=== PATIENT | female | born 1970 | race Caucasian/White ===

== ENCOUNTER → 2016-11-20 | Day surgery (SDC) | payer BC ==
[2016-11-12 14:56] VITALS: Ht 157.5 cm; Wt 63.6 kg
[~2016-11-20] VITALS: Ht 157.5 cm; Wt 63.6 kg
[~2016-11-20] MED LIST: BUSP-8 PO; CHOL20009 PO; DICY20TA35 PO; DULO60CA44 PO; ESCI10TA17 PO; FAMO1TAB48 PO; FRN PO; LIDOCAINE HCL 2% 2 ML VIAL (20MG/ML) ONE; LINA1CAP PO; LVS125 SL; MIDAZOLAM HCL 1 MG/ML 2ML VIAL ONE; PANT40TA PO; POLY335019 PO; POTA99TA PO; POTASSIUM PO; PROPOFOL IV EMULSION 10 MG/ML 20 ML VIAL IV ONE; SENN-91 PO; SUMA0.05 IM; TOLT2TAB9 PO; TOPI100T20 PO; TRAM-10 PO
--- NOTE | 2016-11-20 08:47 | Endo History and Physical ---
History & Physical Date of Service: November 20, 2016. Chief Complaint: CHRONIC DIARRHEA, FECAL URGENCY Referring Physician: DIOGO GARCIA PA-C History of Present Illness 46 yo CF who presents for colonoscopy secondary to chronic diarrhea and fecal urgency. Past Medical History Anxiety, Reflux, Seizure Disorder, Depression Past Surgical History Hx Cardiac Surgery: No Hx Internal Defibrillator: No Hx Pacemaker: No Hx Abdominal Surgery: Yes (HENOK, LAP MOHSEN, D&C) Hx of Implantable Prosthesis: No Hx Post-Op Nausea and Vomiting: Yes (POST-OP NAUSEA) Hx Cancer Surgery: No Hx Thoracic Surgery: No Hx Orthopedic: No Hx Urinary Tract Surgery: No Family History Polyp, IBD Social History Smoking Status: Current Every Day Smoker Hx Substance Use: No Hx Alcohol Use: No Allergies Coded Allergies: Gabapentin (Verified Adverse Reaction, Intermediate, DIZZY HOT FLUSHES "ZOMBIE" LIKE BEHAVIOR, 11/20/16) Current Medications Reported Home Medications Medications Dose Route/Sig Max Daily Dose Days Date Category Zembrace Symtouch (Sumatriptan Succinate) 3 Mg/0.5 Ml Inj 1 Dose IM DIRECTED PRN 11/12/16 Reported Vitamin D (Cholecalciferol) 2,000 Unit Tab 1 Tab PO QPM 11/12/16 Reported Topamax (Topiramate) 100 Mg Tab 100 Mg PO BID 11/12/16 Reported [Potassium] 99 Mg PO HS 11/12/16 Reported Lexapro (Escitalopram Oxalate) 10 Mg Tab 10 Mg PO QPM 11/12/16 Reported Cymbalta (Duloxetine Hcl) 60 Mg Cap 60 Mg PO QPM 11/12/16 Reported Butalbital/Aspirin/Caffei 50-325-40 mg (Ergrndkfna-Totpths-Krbpbytv) 1 Cap Cap 1 Cap PO DIRECTED PRN 11/12/16 Reported Protonix (Pantoprazole Sodium) 40 Mg Tab 40 Mg PO BID 05/28/15 Reported Ultram (Tramadol HCl) 50 Mg Tab 50 Mg PO BID PRN 05/15/14 Reported Pepcid (Famotidine) 40 Mg Tab 2 Tab PO HS 10/27/11 Reported Buspirone Hcl 10 Mg Tab 10 Mg PO BID 10/27/11 Reported Vital Signs Weight (Kilograms): 63.64 Height (Feet): 5 Height (Inches): 2 Date Time Temp Pulse Resp B/P Pulse Ox O2 Delivery O2 Flow Rate FiO2 11/20/16 08:36 36.7 58 20 97/66 100 Room Air Physical Exam General Appearance: WD/WN, no apparent distress Respiratory/Chest: Auscultation: breath sounds normal Cardiovascular: Heart Auscultation: RRR Abdomen: Bowel Sounds: normal Inspection & Palpation: soft, non-distended, no tenderness, guarding & rebound Assessment and Plan Assessment: 46 yo CF who presents for colonoscopy secondary to chronic diarrhea and fecal urgency. Plan: Proceed with colonoscopy.
--- NOTE | 2016-11-20 09:57 | GI REPORT ---
Procedure Date: 11/20/2016 9:17 AM Procedure: Colonoscopy Indications: Chronic diarrhea Medicines: Monitored Anesthesia Care Complications: No immediate complications. Estimated Blood Loss: Estimated blood loss: none. Procedure: Pre-Anesthesia Assessment: - Prior to the procedure, a History and Physical was performed, and patient medications and allergies were reviewed. The patient's tolerance of previous anesthesia was also reviewed. The risks and benefits of the procedure and the sedation options and risks were discussed with the patient. All questions were answered, and informed consent was obtained. Prior Anticoagulants: The patient has taken no previous anticoagulant or antiplatelet agents. ASA Grade Assessment: II - A patient with mild systemic disease. After reviewing the risks and benefits, the patient was deemed in satisfactory condition to undergo the procedure. After I obtained informed consent, the scope was passed under direct vision. Throughout the procedure, the patient's blood pressure, pulse, and oxygen saturations were monitored continuously. The scope was introduced through the anus and advanced to the terminal ileum. The colonoscopy was performed without difficulty. The patient tolerated the procedure well. The quality of the bowel preparation was good. The terminal ileum, ileocecal valve, appendiceal orifice, and rectum were photographed. Findings: Non-bleeding internal hemorrhoids were found during retroflexion. The hemorrhoids were small. Several random biopsies were obtained with cold forceps for histology in the entire colon. Fluid aspiration for cytology was performed. Impression: - Non-bleeding internal hemorrhoids. - Several random biopsies were obtained in the entire colon. - Fluid aspiration was performed. Recommendation: - Resume previous diet. - Continue present medications. - Repeat colonoscopy for surveillance based on pathology results. - Return to primary care physician as previously scheduled. Timoteo Grissom DO 11/20/2016 9:57:18 AM This report has been signed electronically. Note Initiated On: 11/20/2016 9:17 AM I attest to the content of the Intraoperative Record and orders documented therein, exceptions below
--- NOTE | 2016-11-20 10:17 | Anesthesiology Progress Note ---
Anesthesia Post Op Note Date & Time November 20, 2016 at 10:17 Vital Signs Pain Intensity: 0 Vital Signs Past 12 Hours Date Time Temp Pulse Resp B/P Pulse Ox O2 Delivery O2 Flow Rate FiO2 11/20/16 10:03 64 16 97/61 98 Room Air 11/20/16 10:00 87/58 11/20/16 09:48 76 16 101/59 96 Room Air 11/20/16 08:36 36.7 58 20 97/66 100 Room Air Notes Mental Status: alert / awake / arousable, participated in evaluation Pt Amnestic to Procedure: Yes Nausea / Vomiting: adequately controlled Pain: adequately controlled Airway Patency, RR, SpO2: stable & adequate BP & HR: stable & adequate Hydration State: stable & adequate Anesthetic Complications: no major complications apparent
[2016-11-20 10:33] VITALS: BP 106/68; PULSE 61; O2SAT 99
--- NOTE | 2016-11-20 10:37 | Discharge Instructions ---
Endoscopy Patient Instructions Date / Procedure(s) Performed November 20, 2016. Colonoscopy Allergy Information Coded Allergies: Gabapentin (Verified Adverse Reaction, Intermediate, DIZZY HOT FLUSHES "ZOMBIE" LIKE BEHAVIOR, 11/20/16) Discharge Date / Findings November 20, 2016. Random colon biopsies Stool studies collected Internal hemorrhoids Medication Instructions OK to resume all medications today as prescribed Reported Home Medications Medications Dose Route/Sig Max Daily Dose Days Date Category Zembrace Symtouch (Sumatriptan Succinate) 3 Mg/0.5 Ml Inj 1 Dose IM DIRECTED PRN 11/12/16 Reported Vitamin D (Cholecalciferol) 2,000 Unit Tab 1 Tab PO QPM 11/12/16 Reported Topamax (Topiramate) 100 Mg Tab 100 Mg PO BID 11/12/16 Reported [Potassium] 99 Mg PO HS 11/12/16 Reported Lexapro (Escitalopram Oxalate) 10 Mg Tab 10 Mg PO QPM 11/12/16 Reported Cymbalta (Duloxetine Hcl) 60 Mg Cap 60 Mg PO QPM 11/12/16 Reported Butalbital/Aspirin/Caffei 50-325-40 mg (Iwtpjjemsn-Abxbczj-Thzmsrar) 1 Cap Cap 1 Cap PO DIRECTED PRN 11/12/16 Reported Protonix (Pantoprazole Sodium) 40 Mg Tab 40 Mg PO BID 05/28/15 Reported Ultram (Tramadol HCl) 50 Mg Tab 50 Mg PO BID PRN 05/15/14 Reported Pepcid (Famotidine) 40 Mg Tab 2 Tab PO HS 10/27/11 Reported Buspirone Hcl 10 Mg Tab 10 Mg PO BID 10/27/11 Reported Provider Instructions Activity Restrictions - No exercising or heavy lifting for 24 hours. - Do not drink alcohol the day of the procedure. - Do not drive a car or operate machinery until the day after the procedure. - Do not make any important decisions or sign important papers in 24 hours after the procedure. Following Day: - Return to full activity which may include returning to work/school. Diet Start your diet with liquids and light foods (jello, soup, juice, toast). Then eat your usual diet if not nauseated. Treatment For Common After Affects For mild abdominal pain, bloating, or excessive gas: - Rest - Eat lightly - Lie on right side Follow-Up Information Follow-up with DIOGO GARCIA PA-C as scheduled Anesthesia Information What You Should Know You have had a procedure that required some medicine to reduce anxiety and discomfort. This treatment is called moderate sedation. After receiving the treatment, you may be sleepy, but you will be able to breathe on your own. The effects of the treatment may last for several hours. Follow these instructions along with Activity/Diet recommendations noted above: * Do NOT do anything where dizziness or clumsiness would be dangerous. * Rest quietly at home today, then you can be up and about tomorrow. * Have a responsible person stay with you the rest of today. * You may have had an I.V. today. If so, you may take the dressing off later today. Recommendations Call your doctor if: * Trouble breathing * Continuous vomiting for more than 24 hours * Temperature above 101 degrees * Severe abdominal pain or bloating * Pain not relieved by pain medicine ordered * There is increased drainage or redness from any incision * A large amount of rectal bleeding greater than 2-3 tablespoons. (If you had a polyp/s removed or have hemorrhoids, a small amount of blood - from the rectum is to be expected.) * You have any unanswered questions or concerns. IN THE EVENT OF A SERIOUS EMERGENCY, GO TO THE NEAREST EMERGENCY ROOM Your discharge instructions were prepared by provider Timoteo Grissom. Patient Instructions Signature Page Leana Jeffery Patient (or Guardian) Signature/Date: I have read and understand the instructions given to me by my caregivers. Caregiver/RN/Doctor Signature/Date: The above-named patient and/or guardian has received patient instructions on this date. + Original Patient Signature Page (only) stays with chart. Please make copy for patient.
== END | disposition home or self-care (01) ==
LOC: C.GI 08:12
PROVIDERS: ATTEND Internal Medicine
DX: K63.89 Other specified diseases of intestine (principal); K64.8 Other hemorrhoids; K21.9 Gastro-esophageal reflux disease without esophagitis; G40.909 Epilepsy, unspecified, not intractable, without status epilepticus; F32.9 Major depressive disorder, single episode, unspecified; F41.9 Anxiety disorder, unspecified; F17.210 Nicotine dependence, cigarettes, uncomplicated; Z83.71 Family history of colonic polyps; Z83.79 Family history of other diseases of the digestive system; Z79.899 Other long term (current) drug therapy

== ENCOUNTER → 2016-12-02 | Outpatient (CLI) | payer BC ==
[~2016-12-02] MED LIST changes: -LIDOCAINE HCL 2% 2 ML VIAL (20MG/ML) ONE; -MIDAZOLAM HCL 1 MG/ML 2ML VIAL ONE; -PROPOFOL IV EMULSION 10 MG/ML 20 ML VIAL IV ONE
--- NOTE | 2016-12-03 13:06 | MAMMOGRAPHY REPORT ---
UNILATERAL LEFT DIGITAL DIAGNOSTIC MAMMOGRAM TOMOSYNTHESIS WITH CAD AND TARGETED LEFT ULTRASOUND: CLINICAL HISTORY: Short interval follow-up of left breast masses. TECHNIQUE: Breast tomosynthesis in addition to standard 2D mammography was performed. Current study was also evaluated with a Computer Aided Detection (CAD) system. Left CC and MLO 2-D and tomosynth esis images were obtained. COMPARISON: Comparison is made to exams dated: 06/03/2016 ultrasound, 06/03/2016 mammogram, 05/20/20 16 mammogram, and 03/22/2013 mammogram - [facility]. BREAST COMPOSITION: The tissue of the left breast is heterogeneously dense, which may obscure small masses. FINDINGS: The circumscribed mass is seen within the left lateral breast on the cc view is stable co mpared to prior exams. The remainder of the left breast is stable compared to prior exams, without suspicious masses, calcifications, or areas of architectural distortion noted. Other circumscribed round/oval benign-appearing left breast masses are again noted. Targeted ultrasound was performed of the region of the previously seen left breast masses. Multiple cysts were again noted within the left lateral breast, including an anechoic benign simple cyst brayan suring 7 mm in the left breast at 1:00, 9 cm from the nipple. other anechoic benign cysts were seen within the left breast at 2:00, 8-9 cm from the nipple, one measuring 7 mm and the other measuring 6 x 4 mm. In the left breast at 3:00, 5 cm from the nipple, again noted is a hypoechoic cystic appea ring mass which is stable compared to the prior examination when accounting for differences in techn ique, currently measuring 4 x 8 mm. Other anechoic benign cysts are seen within the left breast at 4 :00. No suspicious masses were noted. One of these cysts likely correlates with the stable mammogr aphic mass. IMPRESSION: ACR BI-RADS CATEGORY 2: BENIGN, TARGETED ULTRASOUND ACR BI-RADS CATEGORY 2: BENIGN Stable circumscribed mass within the left lateral breast mammographically, with multiple scattered c ysts seen in the left lateral breast on ultrasound, one of which likely correlates with the circusms cribed mammographic mass . There is no mammographic or targeted sonographic evidence of malignancy. Return to annual mammogram screening schedule is recommended. The patient has been verbally notifi ed of the results. Approximately 10% of breast cancers are not detected with mammography. A negative mammographic repor t should not delay biopsy if a clinically suggestive mass is present. Ewa Artis M.D. ah/:12/02/2016 15:08:08 [id number] Programmer Analyst: Viviana Lloyd, [facility] letter sent: Normal 1/2 BI-RADS Code: ACR BI-RADS Category 2: Benign Ultrasound BI-RADS: ACR BI-RADS Category 2: Benign
== END | disposition home or self-care (01) ==
LOC: C.MAMM 14:03
PROVIDERS: ATTEND Surgery
DX: N63 Unspecified lump in breast (principal); N60.02 Solitary cyst of left breast

== ENCOUNTER 2016-12-04 16:51 | Emergency (ER) | payer BC ==
[~2016-12-04] VITALS: Ht 157.5 cm; Wt 66.3 kg
[~2016-12-04 16:51] MED LIST changes: -DICY20TA35 PO; -LINA1CAP PO; -LVS125 SL; -POLY335019 PO; -POTA99TA PO; -SENN-91 PO; -TOLT2TAB9 PO
[2016-12-04 17:01] VITALS: TEMP 36.9; Ht 157.5 cm; Wt 66.3 kg
[2016-12-04] MEDS ORDERED: SODIUM CHLORIDE 0.9% 1000ML 1,000 ML IV STA (18:07)
[2016-12-04 18:26] LABS: BASO % 0.3 %; BASO ABS # 0.03 K/uL (0-0.2); COMPLETE YES; EOS % 2.1 %; HEMATOCRIT 42.7 % (37-47); IG% 0.1 %; LYMPH % 28.3 %; LYMPH ABS # 2.65 K/uL (1.2-3.4); MEAN CELL VOLUME 89.5 fL (80-100); MEAN CORPUSCULAR HEMOGLOBIN 31.2 pg (25-34); MEAN CORPUSCULAR HGB CONC 34.9 g/dl (32-36); MEAN PLATELET VOLUME 9.8 fL (7.4-10.4); MONO % 6.6 %; NEUT % 62.6 %; PLATELET COUNT 230 K/uL (130-400); RED BLOOD COUNT 4.77 M/uL (4.2-5.4); WHITE BLOOD COUNT 9.38 K/uL (4.8-10.8)
[2016-12-04 18:44] LABS: ALT/SGPT 18 U/L (12-78); BLOOD UREA NITROGEN 8 mg/dl (7-18); BUN/CREATININE RATIO 9.9 (10-20); CARBON DIOXIDE 25 mmol/L (21-32); CHLORIDE 111 mmol/L (98-107); CREATININE 0.77 mg/dl (0.60-1.20); GLUCOSE 60 mg/dl (70-99); POTASSIUM 3.4 mmol/L (3.5-5.1); SODIUM 142 mmol/L (136-145)
[2016-12-04 18:47] LABS: ALKALINE PHOSPHATASE 57 U/L (45-117); AST/SGOT 13 U/L (15-37)
[2016-12-04] MEDS ORDERED: OPTIRAY 320 IV PRN (19:15)
[2016-12-04 19:17] LABS: URINE APPEARANCE TURBID (CLEAR); URINE BILIRUBIN NEG (NEG); URINE COLOR YELLOW; URINE EPITHELIAL CELL AUTO 20-30 /lpf (0-5); URINE NITRITE NEG (NEG); URINE SPECIFIC GRAVITY 1.011 (1.000-1.030); UROBILINOGEN NEG (NEG); ZZUR CULT IF INDIC CLEAN CATCH NO
[2016-12-04 19:33] LABS: MANUAL MICROSCOPIC REQUIRED? NO; REVIEW REQ? NO
[2016-12-04 19:40] LABS: PREG INTERNAL NEGATIVE QC NEG CLEAR BACKGROUND; PREG INTERNAL POSITIVE QC POS CONTROL LINE
--- NOTE | 2016-12-04 19:40 | DIAGNOSTIC IMAGING REPORT ---
ABDOMEN AND PELVIS CT WITH IV CONTRAST CT DOSE: 491.55 mGy.cm HISTORY: Lower abdominal pain. TECHNIQUE: Multiaxial CT images of the abdomen and pelvis were performed following the use of intravenous contrast. COMPARISON STUDY: Abdomen and pelvis CT 11/07/2008. FINDINGS: The lung bases are clear. No pneumoperitoneum. No pneumatosis. Left L5 pars defect. Small fat-containing umbilical hernia. Cholecystectomy. The liver, pancreas, spleen, and adrenal glands are unremarkable. There is a 1 cm cyst within the lower pole of the left kidney. There is a 1 cm hypodense lesion within the lower pole of the right kidney. This has decreased in size compared to the prior study and therefore also favors a cyst. No hydronephrosis. Question of mild bladder wall thickening. The uterus is surgically absent. No retroperitoneal lymphadenopathy. Small bilateral ovarian cysts have decreased in size. Dominant cyst on the left measures 1.8 cm. No bowel wall thickening or obstruction. Normal appendix. IMPRESSION: 1. No bowel wall thickening or obstruction. 2. Normal appendix. 3. Prior hysterectomy. Small bilateral ovarian cysts have decreased in size. 4. Question of mild bladder wall thickening which may be due to underdistention. Recommend correlation with urinalysis. 5. Small fat-containing umbilical hernia. 6. Cholecystectomy. Electronically signed by: Edgar Chaves M.D. 12/04/2016 7:38 PM Dictated Date/Time: 12/04/2016 7:30 PM
[2016-12-04] MEDS ORDERED: BENTYL HOME PACK 10 MG VIAL PO ONE (20:30)
[2016-12-04] MEDS ORDERED: DICY20TA35 PO (20:32)
[2016-12-04 20:45] LABS: CALCIUM 9.3 mg/dl (8.5-10.1)
[2016-12-04 21:10] VITALS: BP 104/77; PULSE 57; O2SAT 100
--- NOTE | 2016-12-04 22:35 | EMERGENCY ROOM VISIT NOTE ---
History Report prepared by Bhavani: Tasneem Shoemaker Under the Supervision of: Dr. Filemon Garcia M.D. First contact with patient: 18:07 Chief Complaint: ABDOMINAL PAIN Stated Complaint: LOWER ABD/LOWER BACK PAIN,OCCASIONAL CONSTIPATION Nursing Triage Summary: C/o lower abdominal pain on and off since September . Had colonoscopy 11/20/16 - now with constipation and with trouble holding urine. Patient also states she was lifting boxes and felt a tearing pain in lower abdomen. History of Present Illness The patient is a 46 year old female who presents to the Emergency Room with complaints of constant lower abdominal pain that started several months ago. She rates her current discomfort as a 4/10 in severity. The pain is worse with strenuous activity. She states that she experiences a "tearing" pain in her abdomen when she is at work lifting boxes. The patient states that her abdominal pain started after she had a GI virus with uncontrollable diarrhea 3 months ago. She states that she is still experiencing diarrhea, but thinks that it may be due to her gastroparesis. She followed with GI for the diarrhea and had a colonoscopy done on 11/20/2016. She has an appointment with Dr. Jaciel URIARTE on Wednesday to follow-up from the procedure. The patient adds that she is experiencing urinary incontinence which started prior to having the colonoscopy done. She states that she has been incontinent of small amounts of urine ever since she had a hysterectomy several years ago, but currently she has no control over her bladder. She is also experiencing back pain with her current symptoms, but it is not severe. Pt denies LOC, headache, fevers, chills, diaphoresis, visual changes, neck pain, chest pain, breathing difficulties, nausea, vomiting, melena, hematochezia, numbness, weakness, lymphadenopathy, rash, or other complaints. The patient saw her PCP earlier today and they recommended coming into the ED for further evaluation. Source of History: patient Onset: several months ago Position: abdomen (lower) Symptom Intensity: 4/10 Quality: other (lower abdominal pain) Timing: constant Associated Symptoms: + back pain, + diarrhea, + urinary symptoms (urinary incontinence) Review of Systems See HPI for pertinent positives and negatives. A total of ten systems were reviewed and were otherwise negative. Past Medical & Surgical Medical Problems: (1) Acid Reflux Disease (2) Anxiety (3) Bronchitis (4) Cholecystectomy (5) Dilation and curettage (6) Gastroesophageal reflux disease (7) Hysterectomy Family History Cancer Depression Gallbladder disease Social History Smoking Status: Current Every Day Smoker Marital Status: Housing Status: lives with significant other Current/Historical Medications Scheduled Buspirone Hcl (Buspirone Hcl), 10 MG PO BID Cholecalciferol (Vitamin D), 1 TAB PO QPM Duloxetine Hcl (Cymbalta), 60 MG PO QPM Escitalopram (Lexapro), 10 MG PO QPM Famotidine (Pepcid), 2 TAB PO HS Pantoprazole Sodium (Protonix), 40 MG PO BID Topiramate (Topamax), 100 MG PO BID [Potassium], 99 MG PO HS Scheduled PRN Ekjpcixuto-Lvnwxwi-Thnnikuw (Butalbital/Aspirin/Caffei 50-325-40 mg), 1 CAP PO DIRECTED PRN for Migraine Dicyclomine Hcl (Bentyl), 20 MG PO QID PRN for Pain Sumatriptan Succinate (Zembrace Symtouch), 1 DOSE IM DIRECTED PRN for Migraine Tramadol (Ultram), 50 MG PO BID PRN for Headache Allergies Coded Allergies: Gabapentin (Verified Adverse Reaction, Intermediate, DIZZY HOT FLUSHES "ZOMBIE" LIKE BEHAVIOR, 11/20/16) Physical Exam Vital Signs Date Time Temp Pulse Resp B/P Pulse Ox O2 Delivery O2 Flow Rate FiO2 12/04/16 21:10 57 18 104/77 100 12/04/16 19:57 64 12/04/16 19:56 62 18 113/76 100 12/04/16 17:01 36.9 66 16 117/79 100 Room Air Physical Exam GENERAL: Awake, alert, well-appearing, in no distress HENT: Normocephalic, atraumatic. Oropharynx unremarkable. EYES: Normal conjunctiva. Sclera non-icteric. NECK: Supple. No nuchal rigidity. FROM. No JVD. RESPIRATORY: Clear to auscultation. CARDIAC: Regular rate, normal rhythm. Extremities warm and well perfused. Pulses equal. ABDOMEN: Soft, non-distended. Mild generalized abdominal tenderness to palpation. No rebound or guarding. No masses. RECTAL: Deferred. MUSCULOSKELETAL: Chest examination reveals no tenderness. The back is symmetrical on inspection without obvious abnormality. There is no CVA tenderness to palpation. No joint edema. LOWER EXTREMITIES: Calves are equal size bilaterally and non-tender. No edema. No discoloration. NEURO: Normal sensorium. No sensory or motor deficits noted. No saddle anesthesia. SKIN: No rash or jaundice noted. Medical Decision & Procedures ER Provider Diagnostic Interpretation: Radiology results as stated below per my review and radiologist interpretation: ABDOMEN AND PELVIS CT WITH IV CONTRAST FINDINGS: The lung bases are clear. No pneumoperitoneum. No pneumatosis. Left L5 pars defect. Small fat-containing umbilical hernia. Cholecystectomy. The liver, pancreas, spleen, and adrenal glands are unremarkable. There is a 1 cm cyst within the lower pole of the left kidney. There is a 1 cm hypodense lesion within the lower pole of the right kidney. This has decreased in size compared to the prior study and therefore also favors a cyst. No hydronephrosis. Question of mild bladder wall thickening. The uterus is surgically absent. No retroperitoneal lymphadenopathy. Small bilateral ovarian cysts have decreased in size. Dominant cyst on the left measures 1.8 cm. No bowel wall thickening or obstruction. Normal appendix. IMPRESSION: 1. No bowel wall thickening or obstruction. 2. Normal appendix. 3. Prior hysterectomy. Small bilateral ovarian cysts have decreased in size. 4. Question of mild bladder wall thickening which may be due to underdistention. Recommend correlation with urinalysis. 5. Small fat-containing umbilical hernia. 6. Cholecystectomy. Electronically signed by: Edgar Chaves M.D. 12/04/2016 7:38 PM Dictated Date/Time: 12/04/2016 7:30 PM Laboratory Results 12/04/16 18:12 Red Blood Count 4.77, Mean Corpuscular Volume 89.5, Mean Corpuscular Hemoglobin 31.2, Mean Corpuscular Hemoglobin Concent 34.9, Mean Platelet Volume 9.8, Neutrophils (%) (Auto) 62.6, Lymphocytes (%) (Auto) 28.3, Monocytes (%) (Auto) 6.6, Eosinophils (%) (Auto) 2.1, Basophils (%) (Auto) 0.3, Neutrophils # (Auto) 5.87, Lymphocytes # (Auto) 2.65, Monocytes # (Auto) 0.62, Eosinophils # (Auto) 0.20, Basophils # (Auto) 0.03 5/19/17 18:12 Test 12/04/16 00:00 12/04/16 18:12 12/04/16 19:05 Urine Color YELLOW Urine Appearance TURBID (CLEAR) Urine pH 8.0 (4.5-7.5) Urine Specific [place] 1.011 (1.000-1.030) Urine Protein NEG (NEG) Urine Glucose (UA) NEG (NEG) Urine Ketones NEG (NEG) Urine Occult Blood NEG (NEG) Urine Nitrite NEG (NEG) Urine Bilirubin NEG (NEG) Urine Urobilinogen NEG (NEG) Urine Leukocyte Esterase NEG (NEG) Urine WBC (Auto) 1-5 /hpf (0-5) Urine RBC (Auto) 0-4 /hpf (0-4) Urine Hyaline Casts (Auto) 1-5 /lpf (0-5) Urine Epithelial Cells (Auto) 20-30 /lpf (0-5) Urine Bacteria (Auto) NEG (NEG) White Blood Count 9.38 K/uL (4.8-10.8) Red Blood Count 4.77 M/uL (4.2-5.4) Hemoglobin 14.9 g/dL (12.0-16.0) Hematocrit 42.7 % (37-47) Mean Corpuscular Volume 89.5 fL (80-100) Mean Corpuscular Hemoglobin 31.2 pg (25-34) Mean Corpuscular Hemoglobin Concent 34.9 g/dl (32-36) Platelet Count 230 K/uL (130-400) Mean Platelet Volume 9.8 fL (7.4-10.4) Neutrophils (%) (Auto) 62.6 % Lymphocytes (%) (Auto) 28.3 % Monocytes (%) (Auto) 6.6 % Eosinophils (%) (Auto) 2.1 % Basophils (%) (Auto) 0.3 % Neutrophils # (Auto) 5.87 K/uL (1.4-6.5) Lymphocytes # (Auto) 2.65 K/uL (1.2-3.4) Monocytes # (Auto) 0.62 K/uL (0.11-0.59) Eosinophils # (Auto) 0.20 K/uL (0-0.5) Basophils # (Auto) 0.03 K/uL (0-0.2) RDW Standard Deviation 42.6 fL (36.4-46.3) RDW Coefficient of Variation 12.9 % (11.5-14.5) Immature Granulocyte % (Auto) 0.1 % Immature Granulocyte # (Auto) 0.01 K/uL (0.00-0.02) Anion Gap 6.0 mmol/L (3-11) Est Creatinine Clear Calc Drug Dose 81.6 ml/min Estimated GFR () 107.3 Estimated GFR (Non- 92.6 BUN/Creatinine Ratio 9.9 (10-20) Calcium Level 9.3 mg/dl (8.5-10.1) Total Bilirubin 0.3 mg/dl (0.2-1) Direct Bilirubin < 0.1 mg/dl (0-0.2) Aspartate Amino Transf (AST/SGOT) 13 U/L (15-37) Alanine Aminotransferase (ALT/SGPT) 18 U/L (12-78) Alkaline Phosphatase 57 U/L (45-117) Total Protein 8.1 gm/dl (6.4-8.2) Albumin 4.2 gm/dl (3.4-5.0) Lipase 134 U/L (73-393) Human Chorionic Gonadotropin, Qual NEG (NEG) Bedside Glucose 71 mg/dl (70-90) Laboratory results reviewed by me Medications Administered Medications (Trade) Dose Ordered Sig/Quang Route Start Time Stop Time Status Last Admin Dose Admin Sodium Chloride (Nss 1000ml) 1,000 ml @ 999 mls/hr Q1H1M STAT IV 12/04/16 18:07 12/04/16 19:07 DC 12/04/16 18:24 999 MLS/HR Dicyclomine HCl (Dicyclomine HCl 10MG Home Pack) 1 ea UD ONCE PO 12/04/16 20:30 12/04/16 20:31 DC 12/04/16 20:30 1 EA ED Course 1807: Ordered Sodium Chloride 1000 ml @ 999 mls/hr IV 1848: The patient was evaluated in room A11. A complete history and physical exam was performed. 1907: Discussed the patient's case with Dr. Jaciel URIARTE. He reviewed the patient' s colonoscopy results with me and he is going to follow-up with her in the office on Wednesday. 2022: I reevaluated the patient. Discussed results and discharge instructions: she verbalized understanding and agreement. The patient is ready for discharge. 2030: Ordered Dicyclomine HCl 1 ea PO Medical Decision Triage Nursing notes reviewed. The patient's presentation and history were concerning for abdominal pain. Etiologies such as appendicitis, diverticulitis, obstruction, inflammatory bowel disease, renal colic, PUD, biliary pathology, pancreatitis, mesenteric ischemia, aortic pathology, infections, genitourinary, UTI, perforated viscus, neurologic, as well as others were entertained. The patient was evaluated. She notes occasional constipation and abdominal pain. It is been on and off since September. She also notes some issues with her urine but states that the urinary issues of been going on since her hysterectomy. She had a colonoscopy performed. Pathology did not reveal anything significant to some mild chronic inflammation. She was directed to the Emergency Room for further management by her primary office. The patient has a pending gastroenterology appointment on Wednesday. Her CBC, chemistry panel , LFTs and lipase, and urinalysis were unremarkable. The patient is not . She underwent CT imaging which did not reveal any evidence of emergent pathology. The patient did receive IV hydration here. She did declinded analgesia here. On discussion of her results the patient was offered some medication and she notes intermittent crampy pain. She may do well with Bentyl. I did prescribe her Bentyl as well as give her a home pack. The patient has a follow-up with her GI in less than 72 hours. If she worsens in any way she can come back to the emergency department for reevaluation. The patient feels comfortable with outpatient management of this ongoing issue. The patient states that she has had some issues controlling her urine. She has some mild back pain. The urinary issues have been going on since her hysterectomy. Her back pain is not significant. She does not have symptoms or signs of back pathology such as cauda equina, discitis, or epidural abscess to warrant further imaging regarding those potential issues. By the evaluation outlined above other emergent etiologies such as those listed in the differential, as well as others, were deemed relatively unlikely. The patient was informed about the findings as listed above. All questions were answered and she was pleased with the treatment. Return instructions were outlined and the patient was discharged in stable condition. The patient was referred to GI and her primary clinic for follow-up for a recheck of the current condition. The chart was completed utilizing [employer] voice recognition software. Grammatical errors, random word insertions, pronoun errors, and incomplete sentences are an occasional consequence of this system due to software limitations, ambient noise, and hardware issues. Any formal questions or concerns about the content, text, or information contained within the body of this dictation should be directly addressed to the physician for clarification. Consults Time Called: -- Consulting Physician: Dr. Jaciel URIARTE Returned Call: 1907 Discussed the patient's case with Dr. Jaciel URIARTE. He reviewed the patient's colonoscopy results with me and he is going to follow-up with her in the office on Wednesday. Impression Primary Impression: Generalized abdominal pain of unknown etiology Scribe Attestation The scribe's documentation has been prepared under my direction and personally reviewed by me in its entirety. I confirm that the note above accurately reflects all work, treatment, procedures, and medical decision making performed by me. Departure Information Dispostion Home / Self-Care Prescriptions Dicyclomine Hcl (BENTYL) 20 Mg Tab 20 MG PO QID Y for Pain, #30 TAB Prov: Filemon Garcia MD 12/04/16 Referrals Louann Bobby PA-C (PCP) Patient Instructions My [facility] Additional Instructions ABDOMINAL PAIN INSTRUCTIONS: Bentyl(dicyclomine) 20 mg: Take one tablet 4 times daily as needed for abdominal pain. If 20 mg does not seem to be enough you may increase to 40 mg 4 times daily after one week. If you do not have any results with this medication do not continue past 2 weeks from the start date. Discontinue this medication if you develop any rash, itching, increased abdominal pain, heartburn , increased nausea, constipation, or as needed. Acetaminophen(Tylenol) may be used for fever or pain. Use 1000mg every six hours as needed. Avoid using more than 4000mg in a 24 hour period. Rest and drink plenty of fluids as tolerated. Slow sips of water or sports drinks are recommended instead of large amounts all at once. Continue current medications. Once your stomach is settled start with a clear liquid diet (jello, soup broth, etc.) and then advance as tolerated. You should avoid full, heavy meals for about 24 hrs from the time your symptoms resolved. Return to the ER immediately for worsening or persistent abdominal pain, vomiting, fevers, chest pains, difficulty breathing, black or bloody stools, worsening of your condition, or as needed. Follow up with your primary physician and Dr. Grissom next week for a recheck of your current condition.
[2017-03-18] MEDS ORDERED: POLY335019 PO (11:09)
[2017-03-18] MEDS ORDERED: SENN-91 PO (11:09)
== END 2016-12-04 21:11 | disposition home or self-care (01) ==
LOC: C.EDB 16:52 → C.EDA 21:11
DX: R10.84 Generalized abdominal pain (principal); K21.9 Gastro-esophageal reflux disease without esophagitis; F41.9 Anxiety disorder, unspecified; Z80.9 Family history of malignant neoplasm, unspecified; Z83.79 Family history of other diseases of the digestive system; F17.210 Nicotine dependence, cigarettes, uncomplicated; Z79.899 Other long term (current) drug therapy

== ENCOUNTER 2016-12-11 14:09 | Observation (INO) | payer BC ==
[~2016-12-11] VITALS: Ht 157.5 cm; Wt 66.7 kg
[~2016-12-11 14:09] MED LIST changes: +DICY20TA35 PO
[2016-12-11] MEDS ORDERED: POTA99TA PO (14:27)
[2016-12-11] MEDS ORDERED: ALUMINUM/MAGNESIUM SUSP 30 ML UDC PO STA (14:34)
[2016-12-11] MEDS ORDERED: SODIUM CHLORIDE 0.9% 1000ML 1,000 ML IV STA (14:34)
[2016-12-11] MEDS ORDERED: LIDOCAINE HCL 2% VISC SOLN 20 ML UDC PO STA (14:34)
[2016-12-11] MEDS ORDERED: ONDANSETRON INJ 2 MG/ML 2 ML VIAL IV STA (14:34)
[2016-12-11] MEDS ORDERED: MoRPHine SULFATE 4 MG/ML 1 ML CARP\\VIAL IV STA (14:34)
[2016-12-11 14:43] LABS: BASO % 0.6 %; BASO ABS # 0.03 K/uL (0-0.2); COMPLETE YES; EOS % 2.2 %; HEMATOCRIT 39.3 % (37-47); IG% 0.2 %; LYMPH % 25.2 %; LYMPH ABS # 1.27 K/uL (1.2-3.4); MEAN CELL VOLUME 89.5 fL (80-100); MEAN CORPUSCULAR HEMOGLOBIN 31.2 pg (25-34); MEAN CORPUSCULAR HGB CONC 34.9 g/dl (32-36); MEAN PLATELET VOLUME 9.4 fL (7.4-10.4); MONO % 6.4 %; NEUT % 65.4 %; PLATELET COUNT 213 K/uL (130-400); RED BLOOD COUNT 4.39 M/uL (4.2-5.4); WHITE BLOOD COUNT 5.03 K/uL (4.8-10.8)
[2016-12-11 14:52] LABS: PARTIAL THROMBOPLASTIN RATIO 1.1
[2016-12-11 14:56] LABS: URINE APPEARANCE CLEAR (CLEAR); URINE BILIRUBIN NEG (NEG); URINE COLOR YELLOW; URINE NITRITE NEG (NEG); URINE SPECIFIC GRAVITY 1.008 (1.000-1.030); UROBILINOGEN NEG (NEG)
[2016-12-11 14:57] LABS: PREG INTERNAL NEGATIVE QC NEG CLEAR BACKGROUND; PREG INTERNAL POSITIVE QC POS CONTROL LINE
[2016-12-11 15:04] LABS: ALT/SGPT 18 U/L (12-78); AST/SGOT 12 U/L (15-37); BLOOD UREA NITROGEN 8 mg/dl (7-18); BUN/CREATININE RATIO 10.5 (10-20); CALCIUM 8.2 mg/dl (8.5-10.1); CARBON DIOXIDE 23 mmol/L (21-32); CHLORIDE 114 mmol/L (98-107); CREATININE 0.79 mg/dl (0.60-1.20); GLUCOSE 63 mg/dl (70-99); POTASSIUM 3.3 mmol/L (3.5-5.1); SODIUM 144 mmol/L (136-145)
[2016-12-11 15:07] LABS: ALKALINE PHOSPHATASE 49 U/L (45-117)
[2016-12-11 15:08] LABS: MANUAL MICROSCOPIC REQUIRED? NO; REVIEW REQ? NO
--- NOTE | 2016-12-11 15:31 | DIAGNOSTIC IMAGING REPORT ---
ABDOMEN 2VIEW W/PA CHEST RTN CLINICAL HISTORY: Abd pain pain COMPARISON STUDY: 12/29/2012 FINDINGS: Lungs are clear. Diaphragms smooth. No evidence for cardiac enlargement. Residual contrast within the colon from prior contrast study. Nonobstructive bowel pattern. Cholecystectomy. No acute osseous abnormality. IMPRESSION: Negative chest. Negative abdomen. Extensive residual contrast within the colon from a prior contrast study Electronically signed by: Martell Segundo M.D. 12/11/2016 3:29 PM Dictated Date/Time: 12/11/2016 3:29 PM
[2016-12-11] MEDS ORDERED: HYDROmorphone INJ 1 MG/ML SYR IV STA (15:36)
[2016-12-11 15:41] LABS: BENZODIAZEPINE, URINE NEG (NEG); COCAINE,URINE NEG (NEG); PHENCYCLIDINE, URINE NEG (NEG)
[2016-12-11] MEDS ORDERED: OPTIRAY 320 IV PRN (15:45)
--- NOTE | 2016-12-11 16:49 | DIAGNOSTIC IMAGING REPORT ---
CHEST COMBO ANGIO DISSECTION CLINICAL HISTORY: Severe lower chest and abdominal pain. COMPARISON STUDY: Chest radiograph December 27, 2012. TECHNIQUE: Unenhanced and arterial phase imaging of the chest was performed. Injection of 119 cc Optiray 320 IV was uneventful. Sagittal and coronal reconstructions were viewed as well as maximal intensity projections on an independent 3-D workstation. FINDINGS: The caliber of the thoracic aorta is normal. There is no evidence for intramural hematoma or dissection. The size the heart is normal. There is no pericardial effusion. A small hiatal hernia. No enlarged axillary, mediastinal or hilar lymph nodes are present. There is no consolidation to suggest pneumonia. No pneumothorax or pleural effusion is present. Note is made of a 9 mm left lower lobe nodule which is shown on image 145 of 261. Bony thorax is unremarkable. The abdomen and pelvis will be reported separately. The evaluation of the abdomen and pelvis is compromised by streak artifact from barium within the colon. IMPRESSION: 1. No thoracic aortic dissection. 2. No acute findings within the chest. 3. Indeterminate 9 mm left lower lobe pulmonary nodule. Follow up chest CT in 6 months is recommended. 4. Small hiatal hernia. Electronically signed by: Arnulfo Mendez M.D. 12/11/2016 4:48 PM Dictated Date/Time: 12/11/2016 4:38 PM
--- NOTE | 2016-12-11 16:52 | DIAGNOSTIC IMAGING REPORT ---
CT ANGIOGRAM OF THE ABDOMEN AND PELVIS CLINICAL HISTORY: Generalized abdominal pain. COMPARISON STUDY: Abdominal CT dated 12/04/2016. TECHNIQUE: Following the IV administration of 119 cc of Optiray 320, CT angiogram of the abdomen and pelvis was performed from the lung bases the proximal femora. Images are reviewed in the axial, sagittal, and coronal planes. 3-D MIPS images are created and assessed. IV contrast was administered without complication. The examination is severely degraded by streak artifact from retained barium throughout the colon. FINDINGS: Lower chest: The heart is normal in size and without pericardial effusion. The lung bases are clear noting dependent atelectasis. Liver: The contrast-enhanced liver is normal in size, contour, and attenuation. There is mild central intrahepatic or ductal dilatation. The main portal veins appear patent. Gallbladder: Surgically absent noting clips in the gallbladder fossa. Spleen: Normal in size and attenuation noting heterogeneous arterial phase enhancement. Pancreas: Normal as visualized. Adrenal glands: Unremarkable. Kidneys: Evaluation of the kidneys is severely compromised by streak artifact. The upper poles are normal in appearance. There is no evidence of hydronephrosis. The kidneys enhance symmetrically. Abdominal aorta and iliac arteries: Evaluation of the mid to distal abdominal aorta is nondiagnostic due to extensive streak artifact. The proximal abdominal aorta is is widely patent and normal in caliber. There is no evidence of dissection. The iliac arteries are widely patent bilaterally. Major branches of the abdominal aorta: The celiac and the superior mesenteric artery are widely patent. Renal arteries are patent. Hepatic arterial anatomy is conventional. Imaged portions of inferior mesenteric artery are patent. Bowel: Visualized portions of the small bowel and colon are normal in caliber. There is no evidence of obstruction. The majority of the small bowel loops are not well assessed due to significant streak artifact. The appendix is well-visualized and normal. Peritoneum: There is no intraperitoneal free air or abdominal ascites. Lymphadenopathy: None. Pelvic viscera: Evaluation of the pelvis is significantly degraded by streak artifact from retained barium. The bladder is normal as visualized. The uterus is surgically absent. No obvious adnexal abnormality is identified. Skeletal structures: No destructive bony lesions are seen. IMPRESSION: 1. Severely compromised examination due to extensive streak artifact throughout the abdomen related to retained barium in the colon. 2. The proximal abdominal aorta is normal in appearance, as are the iliac vessels. No dissection is seen within the visualized portions of these vessels. The mid to distal abdominal aorta is not evaluated. 3. No infectious or inflammatory findings are identified in the visualized portions of the abdomen. Evaluation of the mid abdomen and pelvis is severely compromised. Electronically signed by: Guy Meléndez M.D. 12/11/2016 4:51 PM Dictated Date/Time: 12/11/2016 4:44 PM
--- NOTE | 2016-12-11 17:13 | EMERGENCY ROOM VISIT NOTE ---
History First contact with patient: 14:22 Chief Complaint: ABDOMINAL PAIN Stated Complaint: SEVERE STOMACH PAIN Nursing Triage Summary: pt here with abd pains, pt states been a few weeks. pt states pain all over. pt had an upper gi yesterday. denies n/v procedure done at [facility]. History of Present Illness The patient is a 46 year old female who presents to the Emergency Room with complaints of abdominal pain. The patient has had recent problems with abdominal pain. She is currently under the management of Dr. Grissom who she last saw on 12/07/16. She was seen in our emergency last [facility] with similar symptoms , and had a CT scan performed that was normal. The patient had a barium swallow performed yesterday with unknown results. She called Dr. Grissom's office today and was told that the results had not yet been sent to them. They told the patient to come to the emergency department for further evaluation and pain management. She reports that the pain does radiate through to the back. She denies any prior history of pancreatitis, gallbladder disease or hepatitis. She denies any recent reflux symptoms, nausea or vomiting. The pain is constant with occasional sharp jabbing sensation. She has no alleviating or aggravating factors for her pain, and currently rates her discomfort a 10 out of 10. Review of Systems HEENT: Denies dizziness, visual problems, hearing loss, tinnitus. Denies difficulty swallowing or oral lesions. PULMONARY: Denies cough, shortness of breath, sputum production or hemoptysis. CARDIOVASCULAR: Denies chest pain, palpitations, dyspnea on exertion, orthopnea or peripheral edema. GASTROINTESTINAL: See history of present illness. GENITOURINARY: Denies dysuria, frequency, urgency or nocturia. NEUROLOGIC: Denies history of epilepsy, CVA, TIA or chronic headaches. MUSCULOSKELETAL: Denies history of joint tenderness/swelling. SKIN: Denies rashes or lesions. PSYCHIATRIC: Denies history of depression or mental illness. ENDOCRINE: Denies history of diabetes or thyroid disorders. Past Medical/Surgical History Medical Problems: (1) Acid Reflux Disease (2) Anxiety (3) Bronchitis (4) Cholecystectomy (5) Dilation and curettage (6) Gastroesophageal reflux disease (7) Hysterectomy Family History Cancer Depression Gallbladder disease Social History Smoking Status: Current Every Day Smoker Alcohol Use: occasionally Marital Status: Housing Status: lives with significant other Occupation Status: employed Current/Historical Medications Scheduled Buspirone Hcl (Buspirone Hcl), 10 MG PO BID Cholecalciferol (Vitamin D), 2,000 UNITS PO QPM Duloxetine Hcl (Cymbalta), 60 MG PO QPM Escitalopram (Lexapro), 10 MG PO QPM Famotidine (Pepcid), 80 MG PO HS Pantoprazole Sodium (Protonix), 40 MG PO BID Potassium (Potassium), 99 MG PO HS Topiramate (Topamax), 100 MG PO BID Scheduled PRN Lqufenhxeq-Jcrnect-Ysbmiasm (Butalbital/Aspirin/Caffei 50-325-40 mg), 1 CAP PO DIRECTED PRN for Migraine Dicyclomine Hcl (Bentyl), 20 MG PO QID PRN for Pain Sumatriptan Succinate (Zembrace Symtouch), 1 DOSE IM DIRECTED PRN for Migraine Tramadol (Ultram), 50 MG PO BID PRN for Headache Allergies Coded Allergies: Gabapentin (Verified Adverse Reaction, Intermediate, DIZZY HOT FLUSHES "ZOMBIE" LIKE BEHAVIOR, 12/11/16) Physical Exam Vital Signs Date Time Temp Pulse Resp B/P Pulse Ox O2 Delivery O2 Flow Rate FiO2 12/11/16 17:52 62 18 108/72 96 Room Air 12/11/16 16:05 69 12/11/16 15:53 63 24 129/87 97 Room Air 12/11/16 15:23 66 18 128/83 96 Room Air 12/11/16 14:14 36.7 74 16 122/61 100 Room Air Physical Exam CONSTITUTIONAL: Healthy and well nourished. Alert and oriented X 3 with positive affect. Patient appears in moderate discomfort from pain. HEENT: Normocephalic, atraumatic. Pupils equal, round and reactive. Sclerae icterus or conjunctival injection/pallor. NECK: Full active range of motion without discomfort. RESPIRATORY: Clear to auscultation bilaterally with no wheezing, crackles, rhonchi or stridor. CARDIOVASCULAR: Regular rate and rhythm with no murmurs, rubs or gallops. GASTROINTESTINAL: Bowel sounds present in all quadrants. The patient has generalized central abdominal tenderness to palpation. Negative McBurney's point tenderness. Negative CVA tenderness. Negative Kim sign. No abdominal rigidity, guarding or rebound. MUSCULOSKELETAL: Full range of motion of all joints without discomfort. INTEGUMENTARY: No rash or other significant dermatologic conditions noted. NEUROLOGIC: No focal neurologic deficits noted. Medical Decision & Procedures ER Provider Diagnostic Interpretation: My interpretation of an ECG shows a sinus bradycardia of [address] elevation, T-wave inversions or other conduction abnormalities. My interpretation of an abdomen obstruction series with a PA chest view does not show any obstructive pattern, free air or constipation. Radiologist report is as follows: ABDOMEN 2VIEW W/PA CHEST RTN CLINICAL HISTORY: Abd pain pain COMPARISON STUDY: 12/29/2012 FINDINGS: Lungs are clear. Diaphragms smooth. No evidence for cardiac enlargement. Residual contrast within the colon from prior contrast study. Nonobstructive bowel pattern. Cholecystectomy. No acute osseous abnormality. IMPRESSION: Negative chest. Negative abdomen. Extensive residual contrast within the colon from a prior contrast study CT angiogram of the abdomen and pelvis did not show any acute findings, given limitations with streak artifact from the patient's most recent barium swallow study. Radiologist report is as follows: CT ANGIOGRAM OF THE ABDOMEN AND PELVIS CLINICAL HISTORY: Generalized abdominal pain. COMPARISON STUDY: Abdominal CT dated 12/04/2016. TECHNIQUE: Following the IV administration of 119 cc of Optiray 320, CT angiogram of the abdomen and pelvis was performed from the lung bases the proximal femora. Images are reviewed in the axial, sagittal, and coronal planes. 3-D MIPS images are created and assessed. IV contrast was administered without complication. The examination is severely degraded by streak artifact from retained barium throughout the colon. FINDINGS: Lower chest: The heart is normal in size and without pericardial effusion. The lung bases are clear noting dependent atelectasis. Liver: The contrast-enhanced liver is normal in size, contour, and attenuation. There is mild central intrahepatic or ductal dilatation. The main portal veins appear patent. Gallbladder: Surgically absent noting clips in the gallbladder fossa. Spleen: Normal in size and attenuation noting heterogeneous arterial phase enhancement. Pancreas: Normal as visualized. Adrenal glands: Unremarkable. Kidneys: Evaluation of the kidneys is severely compromised by streak artifact. The upper poles are normal in appearance. There is no evidence of hydronephrosis. The kidneys enhance symmetrically. Abdominal aorta and iliac arteries: Evaluation of the mid to distal abdominal aorta is nondiagnostic due to extensive streak artifact. The proximal abdominal aorta is is widely patent and normal in caliber. There is no evidence of dissection. The iliac arteries are widely patent bilaterally. Major branches of the abdominal aorta: The celiac and the superior mesenteric artery are widely patent. Renal arteries are patent. Hepatic arterial anatomy is conventional. Imaged portions of inferior mesenteric artery are patent. Bowel: Visualized portions of the small bowel and colon are normal in caliber. There is no evidence of obstruction. The majority of the small bowel loops are not well assessed due to significant streak artifact. The appendix is well-visualized and normal. Peritoneum: There is no intraperitoneal free air or abdominal ascites. Lymphadenopathy: None. Pelvic viscera: Evaluation of the pelvis is significantly degraded by streak artifact from retained barium. The bladder is normal as visualized. The uterus is surgically absent. No obvious adnexal abnormality is identified. Skeletal structures: No destructive bony lesions are seen. IMPRESSION: 1. Severely compromised examination due to extensive streak artifact throughout the abdomen related to retained barium in the colon. 2. The proximal abdominal aorta is normal in appearance, as are the iliac vessels. No dissection is seen within the visualized portions of these vessels. The mid to distal abdominal aorta is not evaluated. 3. No infectious or inflammatory findings are identified in the visualized portions of the abdomen. Evaluation of the mid abdomen and pelvis is severely compromised. Chest CT angiography also did not show any acute intrathoracic finding. A left lower pulmonary nodule is noted. Radiologist report is as follows: CHEST COMBO ANGIO DISSECTION CLINICAL HISTORY: Severe lower chest and abdominal pain. COMPARISON STUDY: Chest radiograph December 27, 2012. TECHNIQUE: Unenhanced and arterial phase imaging of the chest was performed. Injection of 119 cc Optiray 320 IV was uneventful. Sagittal and coronal reconstructions were viewed as well as maximal intensity projections on an independent 3-D workstation. FINDINGS: The caliber of the thoracic aorta is normal. There is no evidence for intramural hematoma or dissection. The size the heart is normal. There is no pericardial effusion. A small hiatal hernia. No enlarged axillary, mediastinal or hilar lymph nodes are present. There is no consolidation to suggest pneumonia. No pneumothorax or pleural effusion is present. Note is made of a 9 mm left lower lobe nodule which is shown on image 145 of 261. Bony thorax is unremarkable. The abdomen and pelvis will be reported separately. The evaluation of the abdomen and pelvis is compromised by streak artifact from barium within the colon. IMPRESSION: 1. No thoracic aortic dissection. 2. No acute findings within the chest. 3. Indeterminate 9 mm left lower lobe pulmonary nodule. Follow up chest CT in 6 months is recommended. 4. Small hiatal hernia. Laboratory Results 12/11/16 14:35 Red Blood Count 4.39, Mean Corpuscular Volume 89.5, Mean Corpuscular Hemoglobin 31.2, Mean Corpuscular Hemoglobin Concent 34.9, Mean Platelet Volume 9.4, Neutrophils (%) (Auto) 65.4, Lymphocytes (%) (Auto) 25.2, Monocytes (%) (Auto) 6.4, Eosinophils (%) (Auto) 2.2, Basophils (%) (Auto) 0.6, Neutrophils # (Auto) 3.29, Lymphocytes # (Auto) 1.27, Monocytes # (Auto) 0.32, Eosinophils # (Auto) 0.11, Basophils # (Auto) 0.03 12/11/16 14:35 Test 12/11/16 14:30 12/11/16 14:35 Urine Color YELLOW Urine Appearance CLEAR (CLEAR) Urine pH 7.0 (4.5-7.5) Urine Specific [place] 1.008 (1.000-1.030) Urine Protein NEG (NEG) Urine Glucose (UA) NEG (NEG) Urine Ketones NEG (NEG) Urine Occult Blood NEG (NEG) Urine Nitrite NEG (NEG) Urine Bilirubin NEG (NEG) Urine Urobilinogen NEG (NEG) Urine Leukocyte Esterase NEG (NEG) Urine Test NEG (NEG) Urine Opiates Screen NEG (NEG) Urine Methadone, Qualitative NEG (NEG) Urine Barbiturates NEG (NEG) Urine Phencyclidine (PCP) Level NEG (NEG) Ur Amphetamine/Methamphetamine NEG (NEG) MDMA (Ecstasy) Screen NEG (NEG) Urine Benzodiazepines Screen NEG (NEG) Urine Cocaine Metabolite NEG (NEG) Urine Marijuana (THC) NEG (NEG) White Blood Count 5.03 K/uL (4.8-10.8) Red Blood Count 4.39 M/uL (4.2-5.4) Hemoglobin 13.7 g/dL (12.0-16.0) Hematocrit 39.3 % (37-47) Mean Corpuscular Volume 89.5 fL (80-100) Mean Corpuscular Hemoglobin 31.2 pg (25-34) Mean Corpuscular Hemoglobin Concent 34.9 g/dl (32-36) Platelet Count 213 K/uL (130-400) Mean Platelet Volume 9.4 fL (7.4-10.4) Neutrophils (%) (Auto) 65.4 % Lymphocytes (%) (Auto) 25.2 % Monocytes (%) (Auto) 6.4 % Eosinophils (%) (Auto) 2.2 % Basophils (%) (Auto) 0.6 % Neutrophils # (Auto) 3.29 K/uL (1.4-6.5) Lymphocytes # (Auto) 1.27 K/uL (1.2-3.4) Monocytes # (Auto) 0.32 K/uL (0.11-0.59) Eosinophils # (Auto) 0.11 K/uL (0-0.5) Basophils # (Auto) 0.03 K/uL (0-0.2) RDW Standard Deviation 42.2 fL (36.4-46.3) RDW Coefficient of Variation 12.8 % (11.5-14.5) Immature Granulocyte % (Auto) 0.2 % Immature Granulocyte # (Auto) 0.01 K/uL (0.00-0.02) Prothrombin Time 11.0 SECONDS (9.0-12.0) Prothromb Time International Ratio 1.0 (0.9-1.1) Activated Partial Thromboplast Time 28.8 SECONDS (21.0-31.0) Partial Thromboplastin Ratio 1.1 Anion Gap 7.0 mmol/L (3-11) Est Creatinine Clear Calc Drug Dose 79.9 ml/min Estimated GFR () 104.0 Estimated GFR (Non- 89.8 BUN/Creatinine Ratio 10.5 (10-20) Calcium Level 8.2 mg/dl (8.5-10.1) Total Bilirubin 0.2 mg/dl (0.2-1) Direct Bilirubin < 0.1 mg/dl (0-0.2) Aspartate Amino Transf (AST/SGOT) 12 U/L (15-37) Alanine Aminotransferase (ALT/SGPT) 18 U/L (12-78) Alkaline Phosphatase 49 U/L (45-117) Total Creatine Kinase 102 U/L (26-192) Troponin I < 0.015 ng/ml (0-0.045) Total Protein 6.7 gm/dl (6.4-8.2) Albumin 3.6 gm/dl (3.4-5.0) Lipase 99 U/L (73-393) The above labs were reviewed. A mild hypokalemia as noted, otherwise remaining labs, including troponin, LFTs and lipase are normal. Urinalysis is also unremarkable. Medications Administered Medications (Trade) Dose Ordered Sig/Quang Route Start Time Stop Time Status Last Admin Dose Admin Sodium Chloride (Nss 1000ml) 1,000 ml @ 999 mls/hr Q1H1M STAT IV 12/11/16 14:34 12/11/16 15:34 DC 12/11/16 14:46 999 MLS/HR Ondansetron HCl (Zofran Inj) 4 mg NOW STAT IV 12/11/16 14:34 12/11/16 14:37 DC 12/11/16 14:45 4 MG Morphine Sulfate (MoRPHine SULFATE INJ) 4 mg NOW STAT IV 12/11/16 14:34 12/11/16 14:37 DC 12/11/16 14:46 4 MG Lidocaine HCl (Viscous Lidocaine 2% Soln) 10 ml NOW STAT PO 12/11/16 14:34 12/11/16 14:37 DC 12/11/16 14:45 10 ML Al Hydroxide/Mg Hydroxide (Maalox Susp) 30 ml NOW STAT PO 12/11/16 14:34 12/11/16 14:37 DC 12/11/16 14:45 30 ML Hydromorphone HCl (Dilaudid Inj) 1 mg NOW STAT IV 12/11/16 15:36 12/11/16 15:39 DC 12/11/16 15:49 1 MG Metoclopramide HCl (Reglan Inj) 10 mg NOW STAT IV 12/11/16 17:51 12/11/16 17:53 DC 12/11/16 18:11 10 MG Procedure 1. IV hydration: The patient received a liter normal saline bolus 2. IV medications: Morphine 4 mg and Zofran 4 mg IVP. With developing severe pain, she was then administered Dilaudid 1 mg IVP. ED Course Patient history and physical exam were performed. Nurse's notes were reviewed. Vital signs were reviewed and were normal. I did review the patient's last ED department visit notes, showing a normal CT scan. Her lab work was also normal. Dr. Garcia further discussed the case with Dr. Grissom who stated that he would evaluate the patient and his office. Since that visit, the patient has undergone a barium swallow study with unknown results through Dr. Grissom's office. We also tried to call his office, however the office had already closed for the . It is also noted that the patient was provided a prescription for dicyclomine from her last ED visit. She reports that the dicyclomine is not helping with her pain. At this point, I suggested rechecking labs and providing analgesic/antiemetics. IV access was established, and labs were drawn. The patient was hydrated with normal saline, and received IV medications as discussed in the previous Procedure section. Review of labs did not show any significant findings except for a mild hypokalemia. An abdomen obstruction series with PA chest few did not show any obstructive pattern or free air. The patient still had significant barium remaining within the colon. When I returned to evaluate the patient, the patient was complaining of severe epigastric pain radiating into the chest and back. The was concerned because she has never had this type of pain before. Given that the patient has had an exhaustive workup to this point, and concern for her pain severity, I did elect to perform additional dissection and angiogram studies of the chest, abdomen and pelvis. The patient was administered IV Dilaudid for the pain. She was also administered Reglan 10 mg IVP. An ECG was performed and showed no ST elevation , ectopy or other concerning findings. Bedside troponin was also normal. CT studies of the chest, abdomen and pelvis did not show any evidence for dissection or other acute findings. After the patient returned from CT, she did report improvement of the pain, but the pain was worsening again, rating her discomfort a 7 out of 10. The case was further discussed with Dr. Tony, ED attending physician who recommended hospitalist consultation for intractable abdominal pain. The case was further discussed with the [facility] hospitalist. The patient was evaluated and decision was made for observation and pain management. Please see her dictation for further treatment and final disposition. Laboratory studies are not suggestive of acute pancreatitis, hepatitis or cholecystitis. She does not have any evidence for obstruction or other vascular etiologies within the abdomen. Medical Decision Patient presents to the emergency department with complaint of persistent abdominal pain. She has already had an extensive workup by our department and gastroenterology. She has had a normal enhanced CT of the abdomen and pelvis. Her lab work has been unremarkable. She has undergone colonoscopy and barium swallow. She has a known history of gastroparesis. Because of the severity of her pain today, CT angiography was also performed, showing no evidence for aortic dissection or other acute intra-abdominal findings, given limitations with streak artifact from the barium within her colon. Impression Primary Impression: Generalized abdominal pain of unknown etiology Additional Impression: Hypokalemia Departure Information Referrals Case, Timoteo Montague D.O. (PCP) Patient Instructions My [facility] Problem Qualifiers
[2016-12-11] MEDS ORDERED: METOCLOPRAMIDE HCL INJ 5 MG/ML 2 ML VIAL IV STA (17:51)
[2016-12-11] MEDS ORDERED: ONDANSETRON INJ 2 MG/ML 2 ML VIAL IV PRN (19:45)
[2016-12-11] MEDS ORDERED: BUTALBITAL/ASA/CAFFEINE 1 EA TAB/CAP PO PRN (19:45)
[2016-12-11] MEDS: MoRPHine SULFATE 2 MG/ML CARP IV PRN (20:22)
[2016-12-11] MEDS ORDERED: IV FLUIDS COMPLETED PRN (20:30)
[2016-12-11 20:32] VITALS: BP 103/67; PULSE 50; TEMP 36.5; O2SAT 100; Ht 157.5 cm; Wt 66.7 kg
--- NOTE | 2016-12-11 20:44 | History and Physical ---
History & Physical Date & Time of Service: December 11, 2016 at 20:37 Chief Complaint: Generalized Abdominal Pain Of Unknown Etiology Primary Care Physician: Timoteo Grissom D.O. History of Present Illness Source: patient 46 y/o F c/o abd pain. Pt states that her pain started in September after she had the flu with diarrhea. After her pain and diarrhea did not improve, she was seen by Dr. Grissom and underwent c-scope 11/20/16. This was negative. After the scope, pt states that her diarrhea resolved, but now she has constipation. She had a barium swallow yesterday at [place], and she says it was neg, but she has not had her f/u yet. She states she passed a few small pieces of stool yesterday, but not much. She said she had a better bowel movement about 6 days ago, but it still was not her usual volume. Upon entering the ED room, pt was asleep and after being woken for discussion, states that her pain is a bit better than prior to arrival to the ED, but still "severe". The worst area is pelvic, but she also has epigastric pain. Pt denies fever, SOB, chest pain, LE pain or swelling. ROS as noted above, otherwise neg. Past Medical/Surgical History Medical Problems: (1) Acid Reflux Disease Status: Chronic (2) Anxiety Status: Chronic (3) Bronchitis Status: Resolved (4) Cholecystectomy Status: Resolved (5) Dilation and curettage Status: Resolved (6) Gastroesophageal reflux disease Status: Chronic (7) Hysterectomy Status: Resolved Gastroparesis Migraines --topamax "It is all in my chart. I don't know what all I take for what." Family History Family history was reviewed; no changes noted. Social History Smoking Status: Current Every Day Smoker (1ppd) Alcohol Use: occasionally Drug Use: none Marital Status: Occupational Status: employed Immunizations History of Influenza Vaccine: N/A History of Tetanus Vaccine?: Yes History of Pneumococcal: No History of Hepatitis B Vaccine: Unknown Multi-Drug Resistant Organisms History of MDRO: No Allergies Coded Allergies: Gabapentin (Verified Adverse Reaction, Intermediate, DIZZY HOT FLUSHES "ZOMBIE" LIKE BEHAVIOR, 12/11/16) Home Medications Scheduled Buspirone Hcl (Buspirone Hcl), 10 MG PO BID Cholecalciferol (Vitamin D), 2,000 UNITS PO QPM Duloxetine Hcl (Cymbalta), 60 MG PO QPM Escitalopram (Lexapro), 10 MG PO QPM Famotidine (Pepcid), 80 MG PO HS Pantoprazole Sodium (Protonix), 40 MG PO BID Potassium (Potassium), 99 MG PO HS Topiramate (Topamax), 100 MG PO BID Scheduled PRN Bpbbfapflt-Uegpdbg-Dnycoizu (Butalbital/Aspirin/Caffei 50-325-40 mg), 1 CAP PO DIRECTED PRN for Migraine Dicyclomine Hcl (Bentyl), 20 MG PO QID PRN for Pain Sumatriptan Succinate (Zembrace Symtouch), 1 DOSE IM DIRECTED PRN for Migraine Tramadol (Ultram), 50 MG PO BID PRN for Headache Physical Exam Vital Signs Date Time Temp Pulse Resp B/P Pulse Ox O2 Delivery O2 Flow Rate FiO2 12/11/16 20:32 36.5 50 18 103/67 100 Room Air 12/11/16 20:09 54 16 97/58 94 Room Air 12/11/16 17:52 62 18 108/72 96 Room Air 12/11/16 16:05 69 12/11/16 15:53 63 24 129/87 97 Room Air 12/11/16 15:23 66 18 128/83 96 Room Air 12/11/16 14:14 36.7 74 16 122/61 100 Room Air General Appearance: WD/WN, no apparent distress Head: normocephalic, atraumatic Respiratory/Chest: normal breath sounds, no respiratory distress Cardiovascular: regular rate, rhythm, no edema Abdomen/GI: soft, + tenderness (diffuse, most intense along pelvis) Extremities/Musculoskelatal: no calf tenderness, no pedal edema Neurologic/Psych: alert, + pertinent finding (appears groggy and with difficulty remembering things and speaking clearly, similar to over medication) Skin: normal color, warm/dry Diagnostics Laboratory Results Results Past 24 Hours Test 12/11/16 14:30 12/11/16 14:35 Range/Units Urine Color YELLOW Urine Appearance CLEAR CLEAR Urine pH 7.0 4.5-7.5 Urine Specific [place] 1.008 1.000-1.030 Urine Protein NEG NEG Urine Glucose (UA) NEG NEG Urine Ketones NEG NEG Urine Occult Blood NEG NEG Urine Nitrite NEG NEG Urine Bilirubin NEG NEG Urine Urobilinogen NEG NEG Urine Leukocyte Esterase NEG NEG Urine Test NEG NEG Urine Opiates Screen NEG NEG Urine Methadone, Qualitative NEG NEG Urine Barbiturates NEG NEG Urine Phencyclidine (PCP) Level NEG NEG Ur Amphetamine/Methamphetamine NEG NEG MDMA (Ecstasy) Screen NEG NEG Urine Benzodiazepines Screen NEG NEG Urine Cocaine Metabolite NEG NEG Urine Marijuana (THC) NEG NEG White Blood Count 5.03 4.8-10.8 K/uL Red Blood Count 4.39 4.2-5.4 M/uL Hemoglobin 13.7 12.0-16.0 g/dL Hematocrit 39.3 37-47 % Mean Corpuscular Volume 89.5 80-100 fL Mean Corpuscular Hemoglobin 31.2 25-34 pg Mean Corpuscular Hemoglobin Concent 34.9 32-36 g/dl Platelet Count 213 130-400 K/uL Mean Platelet Volume 9.4 7.4-10.4 fL Neutrophils (%) (Auto) 65.4 % Lymphocytes (%) (Auto) 25.2 % Monocytes (%) (Auto) 6.4 % Eosinophils (%) (Auto) 2.2 % Basophils (%) (Auto) 0.6 % Neutrophils # (Auto) 3.29 1.4-6.5 K/uL Lymphocytes # (Auto) 1.27 1.2-3.4 K/uL Monocytes # (Auto) 0.32 0.11-0.59 K/uL Eosinophils # (Auto) 0.11 0-0.5 K/uL Basophils # (Auto) 0.03 0-0.2 K/uL RDW Standard Deviation 42.2 36.4-46.3 fL RDW Coefficient of Variation 12.8 11.5-14.5 % Immature Granulocyte % (Auto) 0.2 % Immature Granulocyte # (Auto) 0.01 0.00-0.02 K/uL Prothrombin Time 11.0 9.0-12.0 SECONDS Prothromb Time International Ratio 1.0 0.9-1.1 Activated Partial Thromboplast Time 28.8 21.0-31.0 SECONDS Partial Thromboplastin Ratio 1.1 Sodium Level 144 136-145 mmol/L Potassium Level 3.3 3.5-5.1 mmol/L Chloride Level 114 98-107 mmol/L Carbon Dioxide Level 23 21-32 mmol/L Anion Gap 7.0 3-11 mmol/L Blood Urea Nitrogen 8 7-18 mg/dl Creatinine 0.79 0.60-1.20 mg/dl Est Creatinine Clear Calc Drug Dose 79.9 ml/min Estimated GFR () 104.0 Estimated GFR (Non- 89.8 BUN/Creatinine Ratio 10.5 10-20 Random Glucose 63 70-99 mg/dl Calcium Level 8.2 8.5-10.1 mg/dl Total Bilirubin 0.2 0.2-1 mg/dl Direct Bilirubin < 0.1 0-0.2 mg/dl Aspartate Amino Transf (AST/SGOT) 12 15-37 U/L Alanine Aminotransferase (ALT/SGPT) 18 12-78 U/L Alkaline Phosphatase 49 45-117 U/L Total Creatine Kinase 102 26-192 U/L Troponin I < 0.015 0-0.045 ng/ml Total Protein 6.7 6.4-8.2 gm/dl Albumin 3.6 3.4-5.0 gm/dl Lipase 99 73-393 U/L Diagnostic Radiology CXR/Abd: neg for acute CT chest: neg for acute CTA: artifact related to barium Impression Assessment and Plan 46 y/o F who was admitted for observation for intractable abd pain Abd pain: Ongoing w/u with Dr. Grissom, c/s pending Pt advised NPO while she is having such intense pain requiring IV pain meds Gastroparesis hx Monitor on IVF Imaging as noted, neg for stool Migraines: topamax as prior Anxiety: medications as listed Tobacco use: nicotine patch HypoK: replace PO and monitor Level of Care Med/Surg VTE Prophylaxis VTE Risk Assessment Done? Y/N: Yes Risk Level: Low
[2016-12-11] MEDS: SODIUM CHLORIDE 0.9% 1000ML 1,000 ML IV SCH (21:29)
[2016-12-11] MEDS: POTASSIUM CHLR 10 MEQ / WTR 10 MEQ in PREMIXED WATER 100 ML IV SCH ×2 (21:31→23:00)
[2016-12-11] MEDS: DULOXETINE HCL 60 MG CAP PO SCH (21:38)
[2016-12-11] MEDS: FAMOTIDINE 20 MG TAB PO SCH (21:38)
[2016-12-11] MEDS: ESCITALOPRAM OXALATE 10 MG TAB PO SCH (21:38)
[2016-12-11] MEDS: PANTOprazole SOD 40 MG TAB PO SCH (21:39)
[2016-12-11] MEDS: TOPIRAMATE 100 MG TAB PO SCH (21:39)
[2016-12-11] MEDS: CHOLECALCIFEROL 1000 INTER.UNIT TAB PO SCH (21:40)
[2016-12-11] MEDS: HEPARIN SOD 5000 UNIT/0.5 ML CARP SQ SCH (21:41)
[2016-12-11 22:32] VITALS: BP 91/61; PULSE 53; TEMP 36.5; O2SAT 97
[2016-12-12] MEDS: [UNRECOGNIZED DRUG - OTHER] PO SCH (05:41)
[2016-12-12 07:21] VITALS: BP 95/60; PULSE 53; TEMP 36.8; O2SAT 98
[2016-12-12] MEDS: SUMATRIPTAN SCH ×2 (07:38→15:26)
[2016-12-12] MEDS: PANTOprazole SOD 40 MG TAB PO SCH ×2 (07:39→21:22)
[2016-12-12] MEDS: DICYCLOMINE HCL 20 MG TAB PO PRN ×2 (07:39→19:37)
[2016-12-12] MEDS: TOPIRAMATE 100 MG TAB PO SCH ×2 (07:39→21:21)
[2016-12-12] MEDS: NICOTINE 21 MG/24 HR TDSY TD SCH (07:40)
[2016-12-12] MEDS: TRAMADOL HCL 50 MG TAB PO PRN ×2 (07:43→15:26)
[2016-12-12] MEDS: HEPARIN SOD 5000 UNIT/0.5 ML CARP SQ SCH ×2 (07:45→21:32)
[2016-12-12] MEDS: SODIUM CHLORIDE 0.9% 1000ML 1,000 ML IV SCH ×2 (07:46→21:19)
[2016-12-12 08:31] LABS: BUN/CREATININE RATIO 9.6 (10-20); CREATININE 0.77 mg/dl (0.60-1.20); POTASSIUM 3.9 mmol/L (3.5-5.1)
[2016-12-12 08:46] LABS: CALCIUM 7.9 mg/dl (8.5-10.1)
[2016-12-12] MEDS: MoRPHine SULFATE 2 MG/ML CARP IV PRN ×2 (11:12→21:25)
[2016-12-12 11:57] LABS: BASO % 0.7 %; BASO ABS # 0.02 K/uL (0-0.2); COMPLETE YES; EOS % 5.9 %; HEMATOCRIT 34.4 % (37-47); LYMPH % 26.8 %; LYMPH ABS # 0.82 K/uL (1.2-3.4); MEAN CELL VOLUME 90.1 fL (80-100); MEAN CORPUSCULAR HEMOGLOBIN 31.4 pg (25-34); MEAN CORPUSCULAR HGB CONC 34.9 g/dl (32-36); MEAN PLATELET VOLUME 9.8 fL (7.4-10.4); MONO % 8.2 %; NEUT % 58.4 %; PLATELET COUNT 174 K/uL (130-400); RED BLOOD COUNT 3.82 M/uL (4.2-5.4); WHITE BLOOD COUNT 3.06 K/uL (4.8-10.8)
[2016-12-12] MEDS ORDERED: NURSING VERBAL MED ORDER ONE (12:00)
[2016-12-12] MEDS ORDERED: POLYETHYLENE (MIRALAX) 17 GM PACK PO STA (12:35)
[2016-12-12 12:42] LABS: BUN/CREATININE RATIO 11.7 (10-20); CALCIUM 7.8 mg/dl (8.5-10.1); CREATININE 0.76 mg/dl (0.60-1.20); MAGNESIUM 2.3 mg/dl (1.8-2.4); POTASSIUM 3.6 mmol/L (3.5-5.1)
[2016-12-12] MEDS ORDERED: BISACODYL 10 MG SUPP PR PRN (12:45)
--- NOTE | 2016-12-12 14:03 | Progress Note ---
Subjective Date of Service: December 12, 2016. Subjective Pt evaluation today including: conversation w/ patient, physical exam, chart review, lab review, review of studies, review of inpatient medication list Report abdominal pain getting better, about the 4 out of 10 in the middle abdomen, Nurse report to me she got morphine for the pain this morning Patient will night to have some clear liquid diet Problem List Medical Problems: (1) Generalized abdominal pain of unknown etiology Status: Acute (2) Hypokalemia Status: Acute Review of Systems Constitutional: No chills, No fatigue, No fever, No problem reported, No sweats , No weakness, No weight loss Eyes: No diplopia, No discharge, No eye pain, No redness, No worsening of vision ENT: No dental problems, No hearing loss, No nasal symptoms, No sore throat, No tinnitus, No trouble swallowing, No unusual epistaxis Respiratory: No cough, No dyspnea at rest, No dyspnea on exertion, No hemoptysis, No shortness of breath, No sputum, No wheezing Cardiac: No PND, No chest pain, No claudication, No edema, No orthopnea, No palpitations Abdomen: + pain, No constipation, No diarrhea, No nausea, No vomiting Musculoskeletal: No calf pain, No joint pain, No muscle pain, No swelling Female : No abnormal vaginal bleeding, No dysuria, No hematuria, No incontinence, No urinary frequency, No vaginal discharge Neurologic: No balance problems, No memory loss, No numbness/tingling, No paralysis, No vertigo, No weakness Psychiatric: No anhedonism, No anxiety, No depression symptoms, No insomnia, No substance abuse Heme: No abnormal bleeding/bruising, No clotting problems, No night sweats, No swollen lymph nodes Endo: No excessive thirst, No excessive urination, No fatigue Skin: No bleeding, No color change, No itch, No new/changing skin lesions, No rash Objective Vital Signs Date Time Temp Pulse Resp B/P Pulse Ox O2 Delivery O2 Flow Rate FiO2 12/12/16 08:00 Room Air 12/12/16 07:21 36.8 53 16 95/60 98 Room Air 12/12/16 04:00 Room Air 12/12/16 00:00 Room Air 12/11/16 22:32 36.5 53 16 91/61 97 Room Air 12/11/16 20:32 36.5 50 18 103/67 100 Room Air 12/11/16 20:32 36.5 50 18 103/67 100 Room Air 12/11/16 20:09 54 16 97/58 94 Room Air 12/11/16 17:52 62 18 108/72 96 Room Air 12/11/16 16:05 69 12/11/16 15:53 63 24 129/87 97 Room Air 12/11/16 15:23 66 18 128/83 96 Room Air 12/11/16 14:14 36.7 74 16 122/61 100 Room Air Physical Exam General Appearance: WD/WN, no apparent distress Eyes: normal inspection, PERRL, EOMI, sclerae normal ENT: normal ENT inspection, hearing grossly normal, pharynx normal Neck: supple, no adenopathy, thyroid normal, no JVD, no carotid bruits, trachea midline Respiratory/Chest: chest non-tender, normal breath sounds, no respiratory distress, no accessory muscle use, + decreased breath sounds Cardiovascular: regular rate, rhythm, no edema, no gallop, no JVD, no murmur Abdomen: normal bowel sounds, soft, no organomegaly, no pulsatile mass, + tenderness (mid abdomen mild tender) Extremities: normal range of motion, non-tender, normal inspection, no pedal edema, no calf tenderness, normal capillary refill, pelvis stable Neurologic/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, no motor/sensory deficits, alert, normal mood/affect, oriented x 3 Skin: normal color, warm/dry, no rash Lymphatic: no adenopathy Laboratory Results Last 24 Hours Test 12/11/16 14:30 12/11/16 14:35 12/12/16 07:30 12/12/16 11:42 Urine Color YELLOW Urine Appearance CLEAR Urine pH 7.0 Urine Specific [place] 1.008 Urine Protein NEG Urine Glucose (UA) NEG Urine Ketones NEG Urine Occult Blood NEG Urine Nitrite NEG Urine Bilirubin NEG Urine Urobilinogen NEG Urine Leukocyte Esterase NEG Urine Test NEG Urine Opiates Screen NEG Urine Methadone, Qualitative NEG Urine Barbiturates NEG Urine Phencyclidine (PCP) Level NEG Ur Amphetamine/Methamphetamine NEG MDMA (Ecstasy) Screen NEG Urine Benzodiazepines Screen NEG Urine Cocaine Metabolite NEG Urine Marijuana (THC) NEG White Blood Count 5.03 K/uL 3.06 K/uL Red Blood Count 4.39 M/uL 3.82 M/uL Hemoglobin 13.7 g/dL 12.0 g/dL Hematocrit 39.3 % 34.4 % Mean Corpuscular Volume 89.5 fL 90.1 fL Mean Corpuscular Hemoglobin 31.2 pg 31.4 pg Mean Corpuscular Hemoglobin Concent 34.9 g/dl 34.9 g/dl Platelet Count 213 K/uL 174 K/uL Mean Platelet Volume 9.4 fL 9.8 fL Neutrophils (%) (Auto) 65.4 % 58.4 % Lymphocytes (%) (Auto) 25.2 % 26.8 % Monocytes (%) (Auto) 6.4 % 8.2 % Eosinophils (%) (Auto) 2.2 % 5.9 % Basophils (%) (Auto) 0.6 % 0.7 % Neutrophils # (Auto) 3.29 K/uL 1.79 K/uL Lymphocytes # (Auto) 1.27 K/uL 0.82 K/uL Monocytes # (Auto) 0.32 K/uL 0.25 K/uL Eosinophils # (Auto) 0.11 K/uL 0.18 K/uL Basophils # (Auto) 0.03 K/uL 0.02 K/uL RDW Standard Deviation 42.2 fL 42.5 fL RDW Coefficient of Variation 12.8 % 12.9 % Immature Granulocyte % (Auto) 0.2 % 0.0 % Immature Granulocyte # (Auto) 0.01 K/uL 0.00 K/uL Prothrombin Time 11.0 SECONDS Prothromb Time International Ratio 1.0 Activated Partial Thromboplast Time 28.8 SECONDS Partial Thromboplastin Ratio 1.1 Sodium Level 144 mmol/L 143 mmol/L 143 mmol/L Potassium Level 3.3 mmol/L 3.9 mmol/L 3.6 mmol/L Chloride Level 114 mmol/L 113 mmol/L 114 mmol/L Carbon Dioxide Level 23 mmol/L 24 mmol/L 22 mmol/L Anion Gap 7.0 mmol/L 6.0 mmol/L 7.0 mmol/L Blood Urea Nitrogen 8 mg/dl 7 mg/dl 9 mg/dl Creatinine 0.79 mg/dl 0.77 mg/dl 0.76 mg/dl Est Creatinine Clear Calc Drug Dose 79.9 ml/min 81.8 ml/min 82.9 ml/min Estimated GFR () 104.0 107.3 109.0 Estimated GFR (Non- 89.8 92.6 94.1 BUN/Creatinine Ratio 10.5 9.6 11.7 Random Glucose 63 mg/dl 79 mg/dl 77 mg/dl Calcium Level 8.2 mg/dl 7.9 mg/dl 7.8 mg/dl Total Bilirubin 0.2 mg/dl Direct Bilirubin < 0.1 mg/dl Aspartate Amino Transf (AST/SGOT) 12 U/L Alanine Aminotransferase (ALT/SGPT) 18 U/L Alkaline Phosphatase 49 U/L Total Creatine Kinase 102 U/L Troponin I < 0.015 ng/ml Total Protein 6.7 gm/dl Albumin 3.6 gm/dl Lipase 99 U/L Magnesium Level 2.3 mg/dl Assessment and Plan 46 y/o F who was admitted for observation for intractable abd pain on Dec 11 2016 Pt states that her pain started in September after she had the flu with diarrhea. After her pain and diarrhea did not improve, she was seen by Dr. Grissom and underwent c-scope 11/20/16. After the scope, pt states that her diarrhea resolved, but now she has constipation. She had a barium swallow at [place] , and she says it was neg, but she has not had her f/u yet. She states she passed a few small pieces of stool Severe Abd pain upon admission: Seems getting better today In physical exam is soft , very mild tender Abdominal CT studies has no dissection/acute disease Imaging as noted, neg for stool, lipase negative, Liver Function test was normal , no us no leukocytosis, no fever and chill, I will agree to start clear liquid diet, follow-up GI input Migraines: topamax as prior Anxiety: medications as listed Tobacco use: nicotine patch HypoK: Resolved GI and DVT prophylaxis covered Continued [facility] stay due to: multiple IV medications needed Discharge planning: home
[2016-12-12 15:07] VITALS: BP 101/66; PULSE 62; TEMP 36.8; O2SAT 100
[2016-12-12] MEDS: POLYETHYLENE (MIRALAX) 17 GM PACK PO PRN (19:37)
[2016-12-12] MEDS: ACETAMINOPHEN 325 MG TAB PO PRN (19:37)
[2016-12-12 20:00] VITALS: O2SAT 100
[2016-12-12] MEDS: DULOXETINE HCL 60 MG CAP PO SCH (21:20)
[2016-12-12] MEDS: ESCITALOPRAM OXALATE 10 MG TAB PO SCH (21:22)
[2016-12-12] MEDS: CHOLECALCIFEROL 1000 INTER.UNIT TAB PO SCH (21:22)
[2016-12-12] MEDS: FAMOTIDINE 20 MG TAB PO SCH (21:23)
[2016-12-13] VITALS: O2SAT 100
[2016-12-13 00:12] VITALS: BP 95/60; PULSE 50; TEMP 36.7; O2SAT 98
[2016-12-13] MEDS: [UNRECOGNIZED DRUG - OTHER] PO SCH (00:41)
[2016-12-13] MEDS: TRAMADOL HCL 50 MG TAB PO PRN ×2 (01:21→14:05)
[2016-12-13] MEDS: MoRPHine SULFATE 2 MG/ML CARP IV PRN (05:14)
[2016-12-13] MEDS: MAGNESIUM HYDROXIDE SUSP 30 ML UDC PO PRN ×2 (06:18→20:23)
[2016-12-13 07:08] VITALS: BP 95/64; PULSE 59; TEMP 36.8; O2SAT 98
[2016-12-13 07:38] LABS: BASO % 0.7 %; BASO ABS # 0.02 K/uL (0-0.2); COMPLETE YES; EOS % 6.9 %; HEMATOCRIT 35.4 % (37-47); LYMPH % 37.5 %; LYMPH ABS # 1.03 K/uL (1.2-3.4); MEAN CELL VOLUME 90.5 fL (80-100); MEAN CORPUSCULAR HEMOGLOBIN 30.9 pg (25-34); MEAN CORPUSCULAR HGB CONC 34.2 g/dl (32-36); MEAN PLATELET VOLUME 9.9 fL (7.4-10.4); MONO % 8.4 %; NEUT % 46.5 %; PLATELET COUNT 170 K/uL (130-400); RED BLOOD COUNT 3.91 M/uL (4.2-5.4); WHITE BLOOD COUNT 2.75 K/uL (4.8-10.8)
[2016-12-13 08:14] LABS: BUN/CREATININE RATIO 6.6 (10-20); CREATININE 0.76 mg/dl (0.60-1.20); MAGNESIUM 2.3 mg/dl (1.8-2.4); POTASSIUM 3.9 mmol/L (3.5-5.1)
[2016-12-13 08:29] LABS: CALCIUM 8.2 mg/dl (8.5-10.1)
[2016-12-13] MEDS: SUMATRIPTAN SCH ×2 (09:00→15:39)
[2016-12-13] MEDS: TOPIRAMATE 100 MG TAB PO SCH ×2 (09:03→21:53)
[2016-12-13] MEDS: PANTOprazole SOD 40 MG TAB PO SCH ×2 (09:03→21:54)
[2016-12-13] MEDS: NICOTINE 21 MG/24 HR TDSY TD SCH (09:04)
[2016-12-13] MEDS: HEPARIN SOD 5000 UNIT/0.5 ML CARP SQ SCH ×2 (09:08→21:57)
[2016-12-13] MEDS: SODIUM CHLORIDE 0.9% 1000ML 1,000 ML IV SCH (10:13)
[2016-12-13] MEDS: ACETAMINOPHEN 325 MG TAB PO PRN (14:05)
[2016-12-13] MEDS: POLYETHYLENE (MIRALAX) 17 GM PACK PO PRN (14:05)
[2016-12-13 15:00] VITALS: BP 96/59; PULSE 54; TEMP 36.9; O2SAT 97
--- NOTE | 2016-12-13 17:28 | Progress Note ---
Subjective Date of Service: December 13, 2016. Subjective Pt evaluation today including: conversation w/ patient, conversation w/ family , physical exam, chart review, lab review, review of studies, review of inpatient medication list Reported abdominal pain is better, however still 2-3 out of 10, required to several time oral pain medicine for the pain day Has been try clear liquid diet, tolerated well, no nausea vomiting no diarrhea Problem List Medical Problems: (1) Generalized abdominal pain of unknown etiology Status: Acute (2) Hypokalemia Status: Acute Review of Systems Constitutional: No chills, No fatigue, No fever, No problem reported, No sweats , No weakness, No weight loss Eyes: No diplopia, No discharge, No eye pain, No redness, No worsening of vision ENT: No dental problems, No hearing loss, No nasal symptoms, No sore throat, No tinnitus, No trouble swallowing, No unusual epistaxis Respiratory: No cough, No dyspnea at rest, No dyspnea on exertion, No hemoptysis, No shortness of breath, No sputum, No wheezing Cardiac: No PND, No chest pain, No claudication, No edema, No orthopnea, No palpitations Abdomen: + pain, No constipation, No diarrhea, No nausea, No vomiting Musculoskeletal: No calf pain, No joint pain, No muscle pain, No swelling Female : No abnormal vaginal bleeding, No dysuria, No hematuria, No incontinence, No urinary frequency, No vaginal discharge Neurologic: No balance problems, No memory loss, No numbness/tingling, No paralysis, No vertigo, No weakness Psychiatric: No anhedonism, No anxiety, No depression symptoms, No insomnia, No substance abuse Heme: No abnormal bleeding/bruising, No clotting problems, No night sweats, No swollen lymph nodes Endo: No excessive thirst, No excessive urination, No fatigue Skin: No bleeding, No color change, No itch, No new/changing skin lesions, No rash Objective Vital Signs Date Time Temp Pulse Resp B/P Pulse Ox O2 Delivery O2 Flow Rate FiO2 12/13/16 16:46 Room Air 12/13/16 15:00 36.9 54 18 96/59 97 Room Air 12/13/16 08:00 Room Air 12/13/16 07:08 36.8 59 18 95/64 98 Room Air 12/13/16 00:12 36.7 50 18 95/60 98 Room Air 12/13/16 00:00 100 Room Air 12/12/16 20:00 100 Room Air Physical Exam General Appearance: WD/WN, no apparent distress Eyes: normal inspection, PERRL, EOMI, sclerae normal ENT: normal ENT inspection, hearing grossly normal, pharynx normal Neck: supple, no adenopathy, thyroid normal, no JVD, no carotid bruits, trachea midline Respiratory/Chest: chest non-tender, lungs clear, normal breath sounds, no respiratory distress, no accessory muscle use Cardiovascular: regular rate, rhythm, no edema, no gallop, no JVD, no murmur Abdomen: normal bowel sounds, non tender, soft, no organomegaly, no pulsatile mass, + tenderness (in mid abdomen, very mild ) Extremities: normal range of motion, non-tender, normal inspection, no pedal edema, no calf tenderness, normal capillary refill, pelvis stable Neurologic/Psychiatric: 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, no motor/sensory deficits, alert, normal mood/affect, oriented x 3 Skin: normal color, warm/dry, no rash Lymphatic: no adenopathy Laboratory Results Last 24 Hours Test 12/13/16 07:20 White Blood Count 2.75 K/uL Red Blood Count 3.91 M/uL Hemoglobin 12.1 g/dL Hematocrit 35.4 % Mean Corpuscular Volume 90.5 fL Mean Corpuscular Hemoglobin 30.9 pg Mean Corpuscular Hemoglobin Concent 34.2 g/dl Platelet Count 170 K/uL Mean Platelet Volume 9.9 fL Neutrophils (%) (Auto) 46.5 % Lymphocytes (%) (Auto) 37.5 % Monocytes (%) (Auto) 8.4 % Eosinophils (%) (Auto) 6.9 % Basophils (%) (Auto) 0.7 % Neutrophils # (Auto) 1.28 K/uL Lymphocytes # (Auto) 1.03 K/uL Monocytes # (Auto) 0.23 K/uL Eosinophils # (Auto) 0.19 K/uL Basophils # (Auto) 0.02 K/uL RDW Standard Deviation 43.5 fL RDW Coefficient of Variation 13.1 % Immature Granulocyte % (Auto) 0.0 % Immature Granulocyte # (Auto) 0.00 K/uL Sodium Level 144 mmol/L Potassium Level 3.9 mmol/L Chloride Level 113 mmol/L Carbon Dioxide Level 24 mmol/L Anion Gap 7.0 mmol/L Blood Urea Nitrogen 5 mg/dl Creatinine 0.76 mg/dl Est Creatinine Clear Calc Drug Dose 82.9 ml/min Estimated GFR () 109.0 Estimated GFR (Non- 94.1 BUN/Creatinine Ratio 6.6 Random Glucose 80 mg/dl Calcium Level 8.2 mg/dl Magnesium Level 2.3 mg/dl Assessment and Plan 46 y/o F who was admitted for observation for intractable abd pain on Dec 11 2016 Pt states that her pain started in September after she had the flu with diarrhea. After her pain and diarrhea did not improve, she was seen by Dr. Grissom and underwent c-scope 11/20/16. After the scope, pt states that her diarrhea resolved, but now she has constipation. She had a barium swallow at [place] , and she says it was neg, but she has not had her f/u yet. She states she passed a few small pieces of stool Severe Abd pain upon admission: Seems continue getting better and stable In physical exam is soft , very mild tender Abdominal CT studies has no dissection/acute disease Imaging as noted, neg for stool, lipase negative, Liver Function test was normal , no us no leukocytosis, no fever and chill, Advanced diet , to full liquid, advance as tolerated follow-up GI input, not be seen by GI yet ( there was some confusion of holiday coverage amount GI groups), I'm okay for patient to be seen by GI routinely, Her condition is improving and stable, no need to be seen stat Migraines: topamax as prior Anxiety: medications as listed Tobacco use: nicotine patch HypoK: Resolved GI and DVT prophylaxis covered Advanced diet, possible discharge home tomorrow after seeing by GI Continued [facility] stay due to: multiple IV medications needed Discharge planning: home
[2016-12-13 20:00] VITALS: O2SAT 100
--- NOTE | 2016-12-13 20:21 | GASTROINTESTINAL CONSULTATION ---
DATE OF CONSULTATION: 12/13/2016 REFERRED BY: Dr. Holliday. I was asked by Dr. Holliday to consult on this woman for evaluation of abdominal pain. HISTORY OF PRESENT ILLNESS: The patient is a 46-year-old with her at the bedside who has a long history of chronic abdominal pain and numerous gastrointestinal symptoms. She is typically followed by Dr. Grissom as well as being seen by other gastro practices such as [facility]. She carries a diagnosis of gastroparesis that is idiopathic. She has chronic abdominal pain and chronic altered bowel habit. She had a colonoscopy just this past week by Dr. Grissom and it did not show any significant pathology and she had an upper endoscopy in 2014. She has had numerous imaging studies all being normal. Her pain during this admission was periumbilical with some radiation to her epigastric area and because of this with also chest radiation, they were concerned about an arterial catastrophe and she had imaging study looking for dissection, which were negative. She seems to be improving, is currently requesting a regular diet. PAST MEDICAL HISTORY: I reviewed her records and past medical history and her past medical history is significant for what is already mentioned as well as anxiety, reflux, migraines, and gastroparesis. FAMILY HISTORY: Negative for gastrointestinal disease. SOCIAL HISTORY: Significant for smoking a pack a day, but she denies any excessive alcohol use. ALLERGIES: SHE STATES SHE IS ALLERGIC TO GABAPENTIN. OUTPATIENT MEDICATIONS: Include buspirone, Cymbalta, Lexapro, Protonix, Topamax and pain killers p.r.n. including Ultram and butalbital. REVIEW OF SYSTEMS: As above, otherwise she denies any recent change in hearing or vision. She denies any productive cough. She denies any seizures. She denies any depression. She has had no joint swelling. She denies any icterus or jaundice. She has had no dysuria. She denies any alopecia. She denies any abnormal gastrointestinal or genitourinary bleeding. She has had no change in gait. PHYSICAL EXAMINATION: GENERAL: Reveals a woman lying in bed in no distress. VITAL SIGNS: Most recent temperature is 36.9, blood pressure is 96/59, and pulse is 54. SKIN: Anicteric. EYES: Show anicteric sclerae. MOUTH: Clear of lesions. NECK: Supple. LUNGS: Clear. HEART: Regular rate and rhythm. ABDOMEN: Soft. Good bowel sounds. There is no organomegaly, masses, rebound tenderness noted. EXTREMITIES: Warm with good distal pulses and no edema. NEUROLOGIC: She is grossly intact and alert and oriented x3. LABORATORY DATA: Show a normal CBC with a hemoglobin of 12.1. Liver enzymes were normal. Lipase was normal. IMPRESSION: A 46-year-old with chronic abdominal pain symptoms. Most likely this is consistent with a functional bowel disease. I highly doubt that she needs a repeat upper endoscopy and I do not think this would be revealing or helpful. It is reassuring that she had a recent colonoscopy that did not show any pathology. She has not had any ANIMAL ASSISTANT evaluations and sometimes this might be reasonable to rule ANIMAL ASSISTANT pathology and if she is hungry certainly I would slowly advance her diet. [place]
[2016-12-13] MEDS: DULOXETINE HCL 60 MG CAP PO SCH (21:52)
[2016-12-13] MEDS: FAMOTIDINE 20 MG TAB PO SCH (21:53)
[2016-12-13] MEDS: ESCITALOPRAM OXALATE 10 MG TAB PO SCH (21:53)
[2016-12-13] MEDS: CHOLECALCIFEROL 1000 INTER.UNIT TAB PO SCH (21:54)
[2016-12-13] MEDS: DICYCLOMINE HCL 20 MG TAB PO PRN (21:57)
[2016-12-13 23:05] VITALS: BP 100/66; PULSE 55; TEMP 36.3; O2SAT 98
[2016-12-14] VITALS: O2SAT 100
[2016-12-14] MEDS: [UNRECOGNIZED DRUG - OTHER] PO SCH (00:28)
[2016-12-14 07:17] VITALS: BP 100/64; PULSE 69; TEMP 36.7; O2SAT 98
[2016-12-14 07:26] LABS: HEMATOCRIT 37.6 % (37-47); MEAN CELL VOLUME 90.8 fL (80-100); MEAN CORPUSCULAR HEMOGLOBIN 31.2 pg (25-34); MEAN CORPUSCULAR HGB CONC 34.3 g/dl (32-36); MEAN PLATELET VOLUME 9.7 fL (7.4-10.4); PLATELET COUNT 180 K/uL (130-400); RED BLOOD COUNT 4.14 M/uL (4.2-5.4); WHITE BLOOD COUNT 3.18 K/uL (4.8-10.8)
[2016-12-14] MEDS: PANTOprazole SOD 40 MG TAB PO SCH (07:34)
[2016-12-14] MEDS: TOPIRAMATE 100 MG TAB PO SCH (07:35)
[2016-12-14] MEDS: SUMATRIPTAN SCH (07:35)
[2016-12-14] MEDS: NICOTINE 21 MG/24 HR TDSY TD SCH (07:36)
[2016-12-14] MEDS: HEPARIN SOD 5000 UNIT/0.5 ML CARP SQ SCH (07:39)
[2016-12-14 07:57] LABS: BUN/CREATININE RATIO 7.9 (10-20); CALCIUM 8.2 mg/dl (8.5-10.1); CREATININE 0.85 mg/dl (0.60-1.20); MAGNESIUM 2.5 mg/dl (1.8-2.4); POTASSIUM 4.2 mmol/L (3.5-5.1)
--- NOTE | 2016-12-14 12:06 | Discharge Instructions ---
Discharge Instructions Date of Service December 14, 2016. Admission Reason for Admission: Generalized Abdominal Pain Of Unknown Etiology Discharge Discharge Diagnosis / Problem: gastroparesis/functional abdominal pain Discharge Goals Goal(s): Diagnostic testing, Therapeutic intervention Activity Recommendations Activity Limitations: resume your previous activity . Instructions / Follow-Up Instructions / Follow-Up as we discussed, it's appearing more likely (as the negative workup has excluded other causes) that you've got gastroparesis/functional abdominal pain - likely in a slow motility variant ---usually this is an interaction of the nervous system with your intestines creating a discoordinated squeeze, or inappropriately slow transit through your intestines -the rest and digest nervous system acts to move things forward, and is predominantly carried out by the vagus nerve -the fight or flight nervous system acts to slow things down, and comes out of your thoracic spine (upper GI tract from around T5-T9, lower GI tract from about T10-T12) -with another variant of functional abdominal pain (irritable bowel) hands- on medicine (in the study done by a Gema.OCesar, but a good chiropractor will do similar techniques), studies have shown significant improvement in symptoms when working to normalize soft tissue to improve nerve flow (as an example, we talked about how if you sit on your foot, the pressure will cause abberent nerve flow - it's similar with the fight or flight and rest and digest nerves -- pressure on those nerves can lead to inappropriate nerve output) -stress management can also help calm down the fight or flight angle of this ---diet is often very patient specific - the medical recommendations are often a good starting point as guidelines of what probably will help/hurt - but ultimately look at what classes of foods you find affect you in a good way or a bad way and continue to adjust your diet accordingly ---bowel regimens like miralax are also very patient-specific. if you find that using miralax to have a bowel movement 1-2 times a day also cuts down on the times you have a lot of abdominal pain, then continue to use it; if you don' t find any improvement in symptoms, then likely stop. as a reasonable range to reference, one dose of miralax (17g) is a decent starting point for most people , up to about 4-5 doses of miralax [id number] being a variant of a bowel prep for a colonoscopy -- so you can dial up or down your dosing based on your prior response ---Dr Grissom can also coordinate with a motility clinic (a subset of gastroenterologists who mostly/entirely work with motility kinds of problems) - likely through [place] or [facility] - and then can work with you off of their recommendations and findings Current Hospital Diet Patient's current hospital diet: Regular Diet Discharge Diet Recommended Diet: Regular Diet (as you tolerate) Pending Studies Studies pending at discharge: no Medical Emergencies . Who to Call and When: Medical Emergencies: If at any time you feel your situation is an emergency, please call 911 immediately. . Non-Emergent Contact Non-Emergency issues call your: Primary Care Provider, Civil Drafter . . "Provider Documentation" section prepared by Lenard Manzo. . VTE Core Measure Inpt VTE Proph given/why not?: Unfractionated heparin SQ
[2016-12-14 12:34] VITALS: BP 100/64; PULSE 69; TEMP 36.7; O2SAT 98
--- NOTE | 2016-12-14 18:30 | Discharge Summary ---
Discharge Summary Date of Service December 14, 2016. Discharge Summary Admission Date: December 11, 2016 at 19:38 Discharge Date: December 14, 2016 Discharge Disposition: Home Principal Diagnosis: functional abdominal pain Immunizations: Have You Had Influenza Vaccine: N/A History of Tetanus Vaccine?: Yes History of Pneumococcal: No History of Hepatitis B Vaccine: Unknown Procedures: [~ rep ct add3]] CT ANGIOGRAM OF THE ABDOMEN AND PELVIS CLINICAL HISTORY: Generalized abdominal pain. COMPARISON STUDY: Abdominal CT dated 12/04/2016. TECHNIQUE: Following the IV administration of 119 cc of Optiray 320, CT angiogram of the abdomen and pelvis was performed from the lung bases the proximal femora. Images are reviewed in the axial, sagittal, and coronal planes. 3-D MIPS images are created and assessed. IV contrast was administered without complication. The examination is severely degraded by streak artifact from retained barium throughout the colon. FINDINGS: Lower chest: The heart is normal in size and without pericardial effusion. The lung bases are clear noting dependent atelectasis. Liver: The contrast-enhanced liver is normal in size, contour, and attenuation. There is mild central intrahepatic or ductal dilatation. The main portal veins appear patent. Gallbladder: Surgically absent noting clips in the gallbladder fossa. Spleen: Normal in size and attenuation noting heterogeneous arterial phase enhancement. Pancreas: Normal as visualized. Adrenal glands: Unremarkable. Kidneys: Evaluation of the kidneys is severely compromised by streak artifact. The upper poles are normal in appearance. There is no evidence of hydronephrosis. The kidneys enhance symmetrically. Abdominal aorta and iliac arteries: Evaluation of the mid to distal abdominal aorta is nondiagnostic due to extensive streak artifact. The proximal abdominal aorta is is widely patent and normal in caliber. There is no evidence of dissection. The iliac arteries are widely patent bilaterally. Major branches of the abdominal aorta: The celiac and the superior mesenteric artery are widely patent. Renal arteries are patent. Hepatic arterial anatomy is conventional. Imaged portions of inferior mesenteric artery are patent. Bowel: Visualized portions of the small bowel and colon are normal in caliber. There is no evidence of obstruction. The majority of the small bowel loops are not well assessed due to significant streak artifact. The appendix is well-visualized and normal. Peritoneum: There is no intraperitoneal free air or abdominal ascites. Lymphadenopathy: None. Pelvic viscera: Evaluation of the pelvis is significantly degraded by streak artifact from retained barium. The bladder is normal as visualized. The uterus is surgically absent. No obvious adnexal abnormality is identified. Skeletal structures: No destructive bony lesions are seen. IMPRESSION: 1. Severely compromised examination due to extensive streak artifact throughout the abdomen related to retained barium in the colon. 2. The proximal abdominal aorta is normal in appearance, as are the iliac vessels. No dissection is seen within the visualized portions of these vessels. The mid to distal abdominal aorta is not evaluated. 3. No infectious or inflammatory findings are identified in the visualized portions of the abdomen. Evaluation of the mid abdomen and pelvis is severely compromised. [~ rep ct add3]] CHEST COMBO ANGIO DISSECTION CLINICAL HISTORY: Severe lower chest and abdominal pain. COMPARISON STUDY: Chest radiograph December 27, 2012. TECHNIQUE: Unenhanced and arterial phase imaging of the chest was performed. Injection of 119 cc Optiray 320 IV was uneventful. Sagittal and coronal reconstructions were viewed as well as maximal intensity projections on an independent 3-D workstation. FINDINGS: The caliber of the thoracic aorta is normal. There is no evidence for intramural hematoma or dissection. The size the heart is normal. There is no pericardial effusion. A small hiatal hernia. No enlarged axillary, mediastinal or hilar lymph nodes are present. There is no consolidation to suggest pneumonia. No pneumothorax or pleural effusion is present. Note is made of a 9 mm left lower lobe nodule which is shown on image 145 of 261. Bony thorax is unremarkable. The abdomen and pelvis will be reported separately. The evaluation of the abdomen and pelvis is compromised by streak artifact from barium within the colon. IMPRESSION: 1. No thoracic aortic dissection. 2. No acute findings within the chest. 3. Indeterminate 9 mm left lower lobe pulmonary nodule. Follow up chest CT in 6 months is recommended. 4. Small hiatal hernia. Electronically signed by: Arnulfo Mendez M.D. 12/11/2016 4:48 PM ABDOMEN 2VIEW W/PA CHEST RTN CLINICAL HISTORY: Abd pain pain COMPARISON STUDY: 12/29/2012 FINDINGS: Lungs are clear. Diaphragms smooth. No evidence for cardiac enlargement. Residual contrast within the colon from prior contrast study. Nonobstructive bowel pattern. Cholecystectomy. No acute osseous abnormality. IMPRESSION: Negative chest. Negative abdomen. Extensive residual contrast within the colon from a prior contrast study Last Resulted CBC 12/14/16 07:08 Last Resulted BMP 12/14/16 07:08 Consultations: GI Medication Reconciliation Continued Medications: Buspirone Hcl (Buspirone Hcl) 10 Mg Tab 10 MG PO BID Uomwioymje-Daxphek-Mmborpxr (Butalbital/Aspirin/Caffei 50-325-40 mg) 1 Cap Cap 1 CAP PO DIRECTED PRN for Migraine Cholecalciferol (Vitamin D) 2,000 Unit Tab 2000 UNITS PO QPM Dicyclomine Hcl (Bentyl) 20 Mg Tab 20 MG PO QID PRN for Pain, #30 TAB Duloxetine Hcl (Cymbalta) 60 Mg Cap 60 MG PO QPM, CAP Escitalopram (Lexapro) 10 Mg Tab 10 MG PO QPM, TAB Famotidine (Pepcid) 40 Mg Tab 80 MG PO HS Pantoprazole Sodium (Protonix) 40 Mg Tab 40 MG PO BID, TAB Potassium (Potassium) 99 Mg Tab 99 MG PO HS Sumatriptan Succinate (Zembrace Symtouch) 3 Mg/0.5 Ml Inj 1 DOSE IM DIRECTED PRN for Migraine Topiramate (Topamax) 100 Mg Tab 100 MG PO BID, TAB Tramadol (Ultram) 50 Mg Tab 50 MG PO BID PRN for Headache, TAB Discharge Exam Physical Exam: General Appearance: no apparent distress Eyes: EOMI ENT: hearing grossly normal Neck: trachea midline Respiratory/Chest: no respiratory distress, no accessory muscle use Abdomen / GI: soft, + tenderness (mild tenderness to deep palpation, no trigger points, no guarding/rebound/rigidity) Extremities: normal inspection Neurologic/Psychiatric: performance solutions specialist II-XII nml as tested, alert, normal mood/affect Skin: normal color, warm/dry Hospital Course admitted with worsening of acute on chronic abdominal pain, hx of gastroparesis -on review appearing to be IBS/functional abdominal pain spectrum -wants to go home, appearing safe/stable to go home -discussed conventional f/u and Rx (GI, likely w coordination with motility clinic given the complexity of possible interactions w psych meds) and "off the beaten path" discussing efficacy of manipulative medicine in treating IBS sx and rationale for that stable for home Total Time Spent: Greater than 30 minutes This includes examination of the patient, discharge planning, medication reconciliation, and communication with other providers. Discharge Instructions Please refer to the electronic Patient Visit Report (Discharge Instructions) for additional information.
[2017-03-18] MEDS ORDERED: SENN-91 PO (11:09)
[2017-03-18] MEDS ORDERED: POLY335019 PO (11:09)
== END 2016-12-14 13:13 | disposition home or self-care (01) ==
LOC: ENRESERVTM → ENRESERVDT → C.EDB 14:10 → C.MED 19:38
PROVIDERS: ADMIT Family Medicine; ATTEND Family Medicine
DX: R10.84 Generalized abdominal pain (principal); K31.84 Gastroparesis; G43.909 Migraine, unspecified, not intractable, without status migrainosus; F17.200 Nicotine dependence, unspecified, uncomplicated; E87.6 Hypokalemia; K21.9 Gastro-esophageal reflux disease without esophagitis; Z90.49 Acquired absence of other specified parts of digestive tract; Z90.710 Acquired absence of both cervix and uterus; Z81.8 Family history of other mental and behavioral disorders

== ENCOUNTER 2017-02-06 15:12 | Emergency (ER) | payer BC ==
[~2017-02-06] VITALS: Ht 157.5 cm; Wt 63.5 kg
[~2017-02-06 15:12] MED LIST changes: -DICY20TA35 PO; +POTA99TA PO; -POTASSIUM PO
[2017-02-06 15:17] VITALS: TEMP 36.9; Ht 157.5 cm; Wt 63.5 kg
[2017-02-06] MEDS ORDERED: METOCLOPRAMIDE HCL INJ 5 MG/ML 2 ML VIAL IV STA (15:38)
[2017-02-06] MEDS ORDERED: MoRPHine SULFATE 4 MG/ML 1 ML CARP\\VIAL IV STA (15:38)
[2017-02-06] MEDS ORDERED: TOLT2TAB9 PO (15:46)
[2017-02-06] MEDS ORDERED: LINA1CAP PO (15:46)
[2017-02-06] MEDS ORDERED: LVS125 SL (15:46)
[2017-02-06 16:15] LABS: BASO % 0.2 %; BASO ABS # 0.01 K/uL (0-0.2); COMPLETE YES; EOS % 2.4 %; IG% 0.2 %; LYMPH % 29.6 %; MEAN CELL VOLUME 87.8 fL (80-100); MEAN CORPUSCULAR HEMOGLOBIN 30.9 pg (25-34); MEAN CORPUSCULAR HGB CONC 35.1 g/dl (32-36); MEAN PLATELET VOLUME 9.5 fL (7.4-10.4); MONO % 7.2 %; NEUT % 60.4 %; PLATELET COUNT 183 K/uL (130-400); RED BLOOD COUNT 4.44 M/uL (4.2-5.4); WHITE BLOOD COUNT 5.41 K/uL (4.8-10.8)
[2017-02-06 16:32] LABS: BUN/CREATININE RATIO 8.7 (10-20); CALCIUM 8.8 mg/dl (8.5-10.1); CREATININE 0.82 mg/dl (0.60-1.20); POTASSIUM 3.3 mmol/L (3.5-5.1)
[2017-02-06 16:35] LABS: ALB/GLOB RATIO 1.1 (0.9-2)
--- NOTE | 2017-02-06 17:49 | DIAGNOSTIC IMAGING REPORT ---
PA CHEST RADIOGRAPH AND UPRIGHT AND SUPINE AP RADIOGRAPHS OF THE ABDOMEN CLINICAL HISTORY: Epigastric abdominal pain. COMPARISON STUDY: Chest radiograph and abdominal series December 11, 2016 and CTA of the abdomen and pelvis December 11, 2016. FINDINGS: Lung volumes are normal. Lungs are clear. No pneumothorax or pleural effusion is present. Cardiac size is normal. Mediastinal contours are normal. There is no evidence of pulmonary edema. There is no free air. There are cholecystectomy clips. The bowel gas pattern is normal. IMPRESSION: 1. No free air or evidence of bowel obstruction. 2. No acute cardiopulmonary findings. Electronically signed by: Arnulfo Mendez M.D. 02/06/2017 5:48 PM Dictated Date/Time: 02/06/2017 5:47 PM
[2017-02-06] MEDS ORDERED: SIMETHICONE 80 MG CHEW PO ONE (18:15)
[2017-02-06] MEDS ORDERED: ALUMINUM/MAGNESIUM SUSP 30 ML UDC PO STA (18:25)
[2017-02-06 19:34] VITALS: BP 117/64; PULSE 52; O2SAT 99
--- NOTE | 2017-02-09 08:19 | EMERGENCY ROOM VISIT NOTE ---
History First contact with patient: 15:21 Chief Complaint: ABDOMINAL PAIN Stated Complaint: SEVERE STOMACH PAIN, DIARRHEA,DIZZINESS,WEAKNESS History of Present Illness The patient is a 47 year old white female who presents to the Emergency Room with complaints of epigastric abdominal pain that has been present for 4 days. She states she has chronic abdominal pain but does get acute flares. She points to epigastric area as her area of discomfort. She states she has had diarrhea for the last 4 days. No nausea or vomiting. She does take Pepcid as well as Zantac. Her last endoscopy was 2014. She has not seen GI recently. No trauma the abdomen. No change in diet. Pain is crampy and sharp. The states that it frequently causes her to double over and nearly pass out. No other treatment. She denies back pain no urinary frequency or urgency. She does a previous cholecystectomy and hysterectomy. She states she still has her appendix and ovaries. Of note, she also states that she is lactose intolerant but does drink Ensure twice per day. Review of Systems REVIEW OF SYSTEM: HEENT: No dizziness, visual problems, hearing loss, or tinnitus. There is no difficulty swallowing and no oral lesions are present. LYMPH: No adenopathy. PULMONARY: No cough, shortness of breath, sputum production or hemoptysis. CARDIOVASCULAR: No chest pain, palpitations, shortness of breath or peripheral edema. GASTROINTESTINAL: No nausea or vomiting. GENITOURINARY: No dysuria, frequency, urgency or nocturia. NEUROLOGIC: No weakness, muscle tenderness, epilepsy or history of neurological problems. MUSCULOSKELETAL: No history of joint tenderness/swelling. No history of arthritis or arthralgias. SKIN: No rashes or lesions. PSYCHIATRIC: Positive history of anxiety. ENDOCRINE: No history of diabetes, thyroid disorders, or abnormal hair growth. Past Medical/Surgical History Medical Problems: (1) Acid Reflux Disease (2) Anxiety (3) Bronchitis (4) Cholecystectomy (5) Dilation and curettage (6) Functional abdominal pain syndrome (7) Gastroesophageal reflux disease (8) Hysterectomy Family History Cancer Depression Gallbladder disease Social History Smoking Status: Current Every Day Smoker Smokeless Tobacco Use: No Alcohol Use: occasionally Drug Use: none Marital Status: Housing Status: lives with significant other Occupation Status: employed Current/Historical Medications Scheduled Buspirone Hcl (Buspirone Hcl), 10 MG PO BID Cholecalciferol (Vitamin D), 2,000 UNITS PO QPM Duloxetine Hcl (Cymbalta), 60 MG PO QPM Escitalopram (Lexapro), 10 MG PO QPM Famotidine (Pepcid), 80 MG PO HS Hyoscyamine Sulfate (Hyoscyamine Sulfate), 1 TAB SL QID Linaclotide (Linzess), 1 CAP PO DAILY Pantoprazole Sodium (Protonix), 40 MG PO BID Potassium (Potassium), 99 MG PO HS Tolterodine Tartrate (Tolterodine Tartrate), 2 MG PO BID Topiramate (Topamax), 100 MG PO BID Scheduled PRN Xwlsmbuagt-Trydvpt-Aukkpptw (Butalbital/Aspirin/Caffei 50-325-40 mg), 1 CAP PO DIRECTED PRN for Migraine Sumatriptan Succinate (Zembrace Symtouch), 1 DOSE IM DIRECTED PRN for Migraine Tramadol (Ultram), 50 MG PO BID PRN for Headache Allergies Coded Allergies: Gabapentin (Verified Adverse Reaction, Intermediate, DIZZY HOT FLUSHES "ZOMBIE" LIKE BEHAVIOR, 02/06/17) Physical Exam Vital Signs Date Time Temp Pulse Resp B/P (MAP) Pulse Ox O2 Delivery O2 Flow Rate FiO2 02/06/17 19:34 52 18 117/64 99 Room Air 02/06/17 17:50 51 16 87/53 98 Room Air 02/06/17 15:17 36.9 67 20 115/77 97 Room Air Physical Exam Gen.: Well-developed, well-nourished, middle-aged white female, in no acute distress. Sitting on a bed. Alert and oriented. Skin:Warm and dry with good turgor. No rashes or lesions. No ecchymosis or erythema. The patient is not diaphoretic. No abrasions. Heart: Heart RRR. No MGR. Peripheral pulses are 2+. Lungs: Lungs are clear to auscultation. No crackles rhonchi or wheezing. Good air movement. The patient is able to take a deep breath. Abdomen: Abdomen was inspected, auscultated, and palpated. Bowel sounds present x 4 but infrequent. Soft, epigastric discomfort to palpation. No hepato-splenomegaly. No masses noted. No rebound. No pain over McBurney's point. No suprapubic discomfort. Musculoskeletal: Gross motor function of the upper and lower extremities is intact and unremarkable. Neurologic: Gross sensation is intact to the extremities by soft touch. Medical Decision & Procedures ER Provider Diagnostic Interpretation: Acute abdominal x-ray series obtained today was read by radiology as unremarkable for obstruction or free air. She does have a fairly large amount of gas in the large intestine. Laboratory Results 02/06/17 16:00 Red Blood Count 4.44, Mean Corpuscular Volume 87.8, Mean Corpuscular Hemoglobin 30.9, Mean Corpuscular Hemoglobin Concent 35.1, Mean Platelet Volume 9.5, Neutrophils (%) (Auto) 60.4, Lymphocytes (%) (Auto) 29.6, Monocytes (%) (Auto) 7.2, Eosinophils (%) (Auto) 2.4, Basophils (%) (Auto) 0.2, Neutrophils # (Auto) 3.27, Lymphocytes # (Auto) 1.60, Monocytes # (Auto) 0.39, Eosinophils # (Auto) 0.13, Basophils # (Auto) 0.01 02/06/17 16:00 Test 02/06/17 16:00 White Blood Count 5.41 K/uL (4.8-10.8) Red Blood Count 4.44 M/uL (4.2-5.4) Hemoglobin 13.7 g/dL (12.0-16.0) Hematocrit 39.0 % (37-47) Mean Corpuscular Volume 87.8 fL (80-100) Mean Corpuscular Hemoglobin 30.9 pg (25-34) Mean Corpuscular Hemoglobin Concent 35.1 g/dl (32-36) Platelet Count 183 K/uL (130-400) Mean Platelet Volume 9.5 fL (7.4-10.4) Neutrophils (%) (Auto) 60.4 % Lymphocytes (%) (Auto) 29.6 % Monocytes (%) (Auto) 7.2 % Eosinophils (%) (Auto) 2.4 % Basophils (%) (Auto) 0.2 % Neutrophils # (Auto) 3.27 K/uL (1.4-6.5) Lymphocytes # (Auto) 1.60 K/uL (1.2-3.4) Monocytes # (Auto) 0.39 K/uL (0.11-0.59) Eosinophils # (Auto) 0.13 K/uL (0-0.5) Basophils # (Auto) 0.01 K/uL (0-0.2) RDW Standard Deviation 41.0 fL (36.4-46.3) RDW Coefficient of Variation 12.7 % (11.5-14.5) Immature Granulocyte % (Auto) 0.2 % Immature Granulocyte # (Auto) 0.01 K/uL (0.00-0.02) Anion Gap 5.0 mmol/L (3-11) Est Creatinine Clear Calc Drug Dose 74.3 ml/min Estimated GFR () 98.8 Estimated GFR (Non- 85.2 BUN/Creatinine Ratio 8.7 (10-20) Calcium Level 8.8 mg/dl (8.5-10.1) Total Bilirubin 0.2 mg/dl (0.2-1) Aspartate Amino Transf (AST/SGOT) 16 U/L (15-37) Alanine Aminotransferase (ALT/SGPT) 33 U/L (12-78) Alkaline Phosphatase 61 U/L (45-117) Total Protein 6.9 gm/dl (6.4-8.2) Albumin 3.6 gm/dl (3.4-5.0) Globulin 3.3 gm/dl (2.5-4.0) Albumin/Globulin Ratio 1.1 (0.9-2) Amylase Level 22 U/L (25-115) Lipase 85 U/L (73-393) CBC, chem panel, amylase, lipase were obtained. Mildly low potassium at 3.3. Otherwise unremarkable. Medications Administered Medications (Trade) Dose Ordered Sig/Quang Route Start Time Stop Time Status Last Admin Dose Admin Morphine Sulfate (MoRPHine SULFATE INJ) 4 mg NOW STAT IV 02/06/17 15:38 02/06/17 15:43 DC 02/06/17 17:00 4 MG Metoclopramide HCl (Reglan Inj) 10 mg NOW STAT IV 02/06/17 15:38 02/06/17 15:43 DC 02/06/17 17:00 10 MG Simethicone (Mylicon Chew Tab) 80 mg NOW ONCE PO 02/06/17 18:15 02/06/17 18:16 DC 02/06/17 18:29 80 MG Al Hydroxide/Mg Hydroxide (Maalox Susp) 30 ml NOW STAT PO 02/06/17 18:25 02/06/17 18:26 DC 02/06/17 18:30 30 ML Morphine 4 mg IV, Reglan 10 mg IV simethicone 80 mg by mouth, Maalox 30 ML by mouth ED Course Patient and her were educated regarding today's findings. Conservative care measures were discussed. IV was established. Labs were obtained. Acute abdominal x-ray series was also obtained. Given her initial pain, she was given morphine 4 mg IV and Reglan 10 mg IV. This did improve her pain for a short period of time. It then recurred. Given her findings on film and her essentially normal lab work, she was given simethicone and Maalox. Pain did improve but not resolved. She was made aware that Ensure does contain nonfat milk and she may be perpetuating her abdominal pain and bowel symptoms by taking the supplement without using Lactaid. She nor her were aware of this. She was encouraged to follow-up with her PCP and/or chemist food to discuss further evaluation. Continue using simethicone and Maalox to reduce her abdominal discomfort. Return to the ED for any acute changes. Medical Decision Possibility of acute gastroenteritis, unknown etiology, stone in the common bile duct, appendicitis, perforation, diverticulitis, obstruction, lactose intolerance, food allergy, and viral illness were considered among others. Impression Primary Impression: Epigastric abdominal pain of unknown etiology Departure Information Referrals Louann Bobby PA-C (PCP) Patient Instructions My [facility]
[2017-03-18] MEDS ORDERED: POLY335019 PO (11:09)
[2017-03-18] MEDS ORDERED: SENN-91 PO (11:09)
== END 2017-02-06 19:40 | disposition home or self-care (01) ==
LOC: C.EDB 15:14
DX: R10.13 Epigastric pain (principal); K21.9 Gastro-esophageal reflux disease without esophagitis; F41.9 Anxiety disorder, unspecified; F17.200 Nicotine dependence, unspecified, uncomplicated; Z90.710 Acquired absence of both cervix and uterus; Z90.49 Acquired absence of other specified parts of digestive tract; Z98.890 Other specified postprocedural states; Z79.899 Other long term (current) drug therapy; Z81.8 Family history of other mental and behavioral disorders

== ENCOUNTER → 2017-03-23 | Day surgery (SDC) | payer BC ==
[2017-03-18 11:10] VITALS: Ht 157.5 cm; Wt 63.6 kg
[~2017-03-23] VITALS: Ht 157.5 cm; Wt 63.6 kg
[~2017-03-23] MED LIST changes: +ATROPINE SULFATE 0.1 MG/ML 5ML SYR IV PRN; +EpHEDrine SULFATE INJ 50 MG/ML AMP IV PRN; +LIDOCAINE HCL 2% 2 ML VIAL (20MG/ML) ONE; +LINA1CAP PO; +LVS125 SL; +MIDAZOLAM HCL 1 MG/ML 2ML VIAL ONE; +POLY335019 PO; +PROPOFOL IV EMULSION 10 MG/ML 20 ML VIAL IV ONE; +SENN-91 PO; +SODIUM CHLORIDE 0.9% 500ML 500 ML IV ONE; +TOLT2TAB9 PO
[2017-03-23 11:17] VITALS: TEMP 36.6
--- NOTE | 2017-03-23 11:48 | Endo History and Physical ---
History & Physical Date of Service: Mar 23, 2017. Chief Complaint: Ab pain, Referring Physician: Rea Bobby History of Present Illness 47 yo CF who presents for EGD secondary to epigastric abdominal pain. Past Medical History Anxiety, Reflux, Seizure Disorder, Depression Past Surgical History Hx Cardiac Surgery: No Hx Internal Defibrillator: No Hx Pacemaker: No Hx Abdominal Surgery: Yes (HYSTER, LAP MOHSEN, D&C) Hx of Implantable Prosthesis: No Hx Post-Op Nausea and Vomiting: Yes Hx Cancer Surgery: No Hx Thoracic Surgery: No Hx Orthopedic: No Hx Urinary Tract Surgery: No Family History None Social History Smoking Status: Current Every Day Smoker Hx Substance Use: No Hx Alcohol Use: No Allergies Coded Allergies: Gabapentin (Verified Adverse Reaction, Intermediate, DIZZY HOT FLUSHES "ZOMBIE" LIKE BEHAVIOR, 03/18/17) Current Medications Reported Home Medications Medications Dose Route/Sig Max Daily Dose Days Date Category Dose Instructions Senna S (Sennosides-Docusate Sodium) 1 Tab Tab 1 Tab PO QAM 03/18/17 Reported Miralax (Polyethylene Glycol 3350) 1 Pow Pow 17 Gm PO Q2D 03/18/17 Reported Hyoscyamine Sulfate 0.125 Mg Tab 1 Tab SL QID PRN 02/06/17 Reported Tolterodine Tartrate 2 Mg Tab 2 Mg PO BID 02/06/17 Reported Linzess (Linaclotide) 145 Mcg Cap 1 Cap PO DAILY 02/06/17 Reported DOES NOT HAVE ACTUAL PRESCRIPTION YET Potassium 99 Mg Tab 99 Mg PO HS 12/11/16 Reported Zembrace Symtouch (Sumatriptan Succinate) 3 Mg/0.5 Ml Inj 1 Dose IM DIRECTED PRN 11/12/16 Reported Vitamin D (Cholecalciferol) 2,000 Unit Tab 2,000 Units PO QPM 11/12/16 Reported Topamax (Topiramate) 100 Mg Tab 100 Mg PO BID 11/12/16 Reported Lexapro (Escitalopram Oxalate) 10 Mg Tab 10 Mg PO QPM 11/12/16 Reported Cymbalta (Duloxetine Hcl) 60 Mg Cap 60 Mg PO QPM 11/12/16 Reported Butalbital/Aspirin/Caffei 50-325-40 mg (Lybtxlnlnr-Javaotk-Wauwrtfd) 1 Cap Cap 1 Cap PO DIRECTED PRN 11/12/16 Reported Protonix (Pantoprazole Sodium) 40 Mg Tab 40 Mg PO HS 05/28/15 Reported Ultram (Tramadol HCl) 50 Mg Tab 50 Mg PO BID PRN 05/15/14 Reported Pepcid (Famotidine) 40 Mg Tab 1 Tab PO BID 10/27/11 Reported Buspirone Hcl 10 Mg Tab 10 Mg PO BID 10/27/11 Reported Vital Signs Weight (Kilograms): 63.64 Height (Feet): 5 Height (Inches): 2 Date Time Temp Pulse Resp B/P (MAP) Pulse Ox O2 Delivery O2 Flow Rate FiO2 03/23/17 11:17 36.6 60 16 101/68 (79) 98 Room Air Physical Exam General Appearance: WD/WN, no apparent distress Respiratory/Chest: Auscultation: breath sounds normal Cardiovascular: Heart Auscultation: RRR Abdomen: Bowel Sounds: normal Inspection & Palpation: soft, non-distended, no tenderness, guarding & rebound Assessment and Plan Assessment: 47 yo CF who presents for EGD secondary to epigastric abdominal pain. Plan: Proceed with EGD.
--- NOTE | 2017-03-23 12:19 | Discharge Instructions ---
Endoscopy Patient Instructions Date / Procedure(s) Performed Mar 23, 2017. EGD Allergy Information Coded Allergies: Gabapentin (Verified Adverse Reaction, Intermediate, DIZZY HOT FLUSHES "ZOMBIE" LIKE BEHAVIOR, 03/18/17) Discharge Date / Findings Mar 23, 2017. Gastric antrum biopsies Hiatal hernia Medication Instructions OK to resume all medications today as prescribed Reported Home Medications Medications Dose Route/Sig Max Daily Dose Days Date Category Dose Instructions Senna S (Sennosides-Docusate Sodium) 1 Tab Tab 1 Tab PO QAM 03/18/17 Reported Miralax (Polyethylene Glycol 3350) 1 Pow Pow 17 Gm PO Q2D 03/18/17 Reported Hyoscyamine Sulfate 0.125 Mg Tab 1 Tab SL QID PRN 02/06/17 Reported Tolterodine Tartrate 2 Mg Tab 2 Mg PO BID 02/06/17 Reported Linzess (Linaclotide) 145 Mcg Cap 1 Cap PO DAILY 02/06/17 Reported DOES NOT HAVE ACTUAL PRESCRIPTION YET Potassium 99 Mg Tab 99 Mg PO HS 12/11/16 Reported Zembrace Symtouch (Sumatriptan Succinate) 3 Mg/0.5 Ml Inj 1 Dose IM DIRECTED PRN 11/12/16 Reported Vitamin D (Cholecalciferol) 2,000 Unit Tab 2,000 Units PO QPM 11/12/16 Reported Topamax (Topiramate) 100 Mg Tab 100 Mg PO BID 11/12/16 Reported Lexapro (Escitalopram Oxalate) 10 Mg Tab 10 Mg PO QPM 11/12/16 Reported Cymbalta (Duloxetine Hcl) 60 Mg Cap 60 Mg PO QPM 11/12/16 Reported Butalbital/Aspirin/Caffei 50-325-40 mg (Lrctzbtjum-Dylqfdc-Ivsfsvlk) 1 Cap Cap 1 Cap PO DIRECTED PRN 11/12/16 Reported Protonix (Pantoprazole Sodium) 40 Mg Tab 40 Mg PO HS 05/28/15 Reported Ultram (Tramadol HCl) 50 Mg Tab 50 Mg PO BID PRN 05/15/14 Reported Pepcid (Famotidine) 40 Mg Tab 1 Tab PO BID 10/27/11 Reported Buspirone Hcl 10 Mg Tab 10 Mg PO BID 10/27/11 Reported Provider Instructions Activity Restrictions - No exercising or heavy lifting for 24 hours. - Do not drink alcohol the day of the procedure. - Do not drive a car or operate machinery until the day after the procedure. - Do not make any important decisions or sign important papers in 24 hours after the procedure. Following Day: - Return to full activity which may include returning to work/school. Diet Start your diet with liquids and light foods (jello, soup, juice, toast). Then eat your usual diet if not nauseated. Treatment For Common After Affects For mild abdominal pain, bloating, or excessive gas: - Rest - Eat lightly - Lie on right side Follow-Up Information Follow-up with Rea Bobby as scheduled Anesthesia Information What You Should Know You have had a procedure that required some medicine to reduce anxiety and discomfort. This treatment is called moderate sedation. After receiving the treatment, you may be sleepy, but you will be able to breathe on your own. The effects of the treatment may last for several hours. Follow these instructions along with Activity/Diet recommendations noted above: * Do NOT do anything where dizziness or clumsiness would be dangerous. * Rest quietly at home today, then you can be up and about tomorrow. * Have a responsible person stay with you the rest of today. * You may have had an I.V. today. If so, you may take the dressing off later today. Recommendations Call your doctor if: * Trouble breathing * Continuous vomiting for more than 24 hours * Temperature above 101 degrees * Severe abdominal pain or bloating * Pain not relieved by pain medicine ordered * There is increased drainage or redness from any incision * A large amount of rectal bleeding greater than 2-3 tablespoons. (If you had a polyp/s removed or have hemorrhoids, a small amount of blood - from the rectum is to be expected.) * You have any unanswered questions or concerns. IN THE EVENT OF A SERIOUS EMERGENCY, GO TO THE NEAREST EMERGENCY ROOM Your discharge instructions were prepared by provider Timoteo Grissom. Patient Instructions Signature Page Leana Jeffery Patient (or Guardian) Signature/Date: I have read and understand the instructions given to me by my caregivers. Caregiver/RN/Doctor Signature/Date: The above-named patient and/or guardian has received patient instructions on this date. + Original Patient Signature Page (only) stays with chart. Please make copy for patient.
--- NOTE | 2017-03-23 12:23 | Anesthesiology Progress Note ---
Anesthesia Post Op Note Date & Time Mar 23, 2017 at 12:22 Vital Signs Vital Signs Past 12 Hours Date Time Temp Pulse Resp B/P (MAP) Pulse Ox O2 Delivery O2 Flow Rate FiO2 03/23/17 11:17 36.6 60 16 101/68 (79) 98 Room Air Notes Mental Status: alert / awake / arousable, participated in evaluation Pt Amnestic to Procedure: Yes Nausea / Vomiting: adequately controlled Pain: adequately controlled Airway Patency, RR, SpO2: stable & adequate BP & HR: stable & adequate Hydration State: stable & adequate Anesthetic Complications: no major complications apparent
--- NOTE | 2017-03-23 12:26 | GI REPORT ---
Procedure Date: 03/23/2017 11:36 AM Procedure: Upper GI endoscopy Indications: Epigastric abdominal pain Medicines: Monitored Anesthesia Care Complications: No immediate complications. Estimated Blood Loss: Estimated blood loss: none. Procedure: Pre-Anesthesia Assessment: - Prior to the procedure, a History and Physical was performed, and patient medications and allergies were reviewed. The patient's tolerance of previous anesthesia was also reviewed. The risks and benefits of the procedure and the sedation options and risks were discussed with the patient. All questions were answered, and informed consent was obtained. Prior Anticoagulants: The patient has taken no previous anticoagulant or antiplatelet agents. ASA Grade Assessment: II - A patient with mild systemic disease. After reviewing the risks and benefits, the patient was deemed in satisfactory condition to undergo the procedure. After obtaining informed consent, the endoscope was passed under direct vision. Throughout the procedure, the patient's blood pressure, pulse, and oxygen saturations were monitored continuously. The scope was introduced through the mouth, and advanced to the second part of duodenum. The scope was introduced through the and advanced to the. The upper GI endoscopy was accomplished without difficulty. The patient tolerated the procedure well. Findings: The esophagus was normal. A small hiatus hernia was present. Biopsies were taken with a cold forceps in the gastric antrum for Helicobacter pylori testing. The examined duodenum was normal. Impression: - Normal esophagus. - Small hiatus hernia. - Normal examined duodenum. - Biopsies were taken with a cold forceps for Helicobacter pylori testing. Recommendation: - Resume previous diet. - Continue present medications. - Await pathology results. - Return to primary care physician as previously scheduled. Timoteo Grissom, DO 03/23/2017 12:25:57 PM This report has been signed electronically. Note Initiated On: 03/23/2017 11:36 AM I attest to the content of the Intraoperative Record and orders documented therein, exceptions below
[2017-03-23 12:45] VITALS: BP 102/66; PULSE 57; O2SAT 100
== END | disposition home or self-care (01) ==
LOC: C.GI 10:51
PROVIDERS: ATTEND Internal Medicine
DX: R10.13 Epigastric pain (principal); K29.50 Unspecified chronic gastritis without bleeding; K44.9 Diaphragmatic hernia without obstruction or gangrene; F17.200 Nicotine dependence, unspecified, uncomplicated; F32.9 Major depressive disorder, single episode, unspecified; G40.909 Epilepsy, unspecified, not intractable, without status epilepticus; Z90.710 Acquired absence of both cervix and uterus; Z90.49 Acquired absence of other specified parts of digestive tract

== ENCOUNTER → 2017-06-07 | Outpatient (CLI) | payer BC ==
[~2017-06-07] MED LIST changes: -ATROPINE SULFATE 0.1 MG/ML 5ML SYR IV PRN; -EpHEDrine SULFATE INJ 50 MG/ML AMP IV PRN; -LIDOCAINE HCL 2% 2 ML VIAL (20MG/ML) ONE; -MIDAZOLAM HCL 1 MG/ML 2ML VIAL ONE; -PROPOFOL IV EMULSION 10 MG/ML 20 ML VIAL IV ONE; -SODIUM CHLORIDE 0.9% 500ML 500 ML IV ONE
--- NOTE | 2017-06-07 09:45 | DIAGNOSTIC IMAGING REPORT ---
CT SCAN OF THE CHEST WITHOUT IV CONTRAST CLINICAL HISTORY: Pulmonary nodule follow-up. COMPARISON STUDY: Chest x-ray dated 02/06/2017. Chest CT dated 12/11/2016. TECHNIQUE: CT scan of the thorax was performed from the thoracic inlet to the upper abdomen. Images are reviewed in the axial, sagittal, and coronal planes. IV contrast was not administered for this examination as per the referring clinician. A dose lowering technique was utilized adhering to the principles of ALARA. CT DOSE: 229.14 mGy.cm FINDINGS: Thyroid: Imaged portions of the thyroid gland are normal in size and attenuation. Thoracic aorta: The thoracic aorta is normal in caliber and demonstrates standard 3-vessel arch anatomy. Heart: The heart is normal in size and without pericardial effusion. Lungs and pleural spaces: No airspace consolidation or pleural effusion is identified. There are scattered punctate calcified granulomas. The trachea is clear. Secretions are noted in the left mainstem bronchus. A 9 mm peribronchial left lower lobe nodule is unchanged from previous as seen on image #159. No additional pulmonary nodule is identified. Mediastinum: There is no mediastinal lymphadenopathy. Shelbie: Not well assessed without IV contrast. Axillae: There is no axillary lymphadenopathy. Upper abdomen: Cholecystectomy clips are noted. Partially visualized upper abdominal viscera is otherwise within normal limits. Skeletal structures: No lytic or blastic bony lesions are seen. IMPRESSION: 1. There is unchanged appearance of a pathologically indeterminant 9 mm peribronchial left lower lobe pulmonary nodule as compared to 12/11/2016. Continued follow-up is recommended. See below. 2. No new pulmonary lesion is identified. 3. There is no airspace consolidation or pleural effusion. Please refer to below summary of Fleischner criteria recommendations for follow-up of incidental CT nodules (Jenae Godinez, Guidelines for management of small pulmonary nodules detected on CT scans: A statement from the Fleischner Society, Radiology 237: [phone].) SOLID NODULES Solitary nodule size: <6 mm * low risk patients: no follow-up needed * high risk patients: optional CT at 12 months Solitary nodule size: 6-8 mm * low risk patients: follow-up at 6-12 months, then consider further follow-up at 18-24 months * high risk patients: initial follow-up CT at 6-12 months and then at 18-24 months if no change Solitary nodule size: >8 mm * either low or high risk patients - consider follow-up CT at 3 months, and/or CT-PET, and/or biopsy Multiple nodules size: <6 mm * low risk patients: no routine follow-up * high risk patients: optional CT at 12 months Multiple nodules size: 6-8 mm * low risk patients: follow-up at 3-6 months, then consider further follow-up at 18-24 months * high risk patients: follow-up at 3-6 months, then at 18-24 months if no change Multiple nodules size: >8 mm * low risk patients: follow-up at 3-6 months, then consider further follow-up at 18-24 months * high risk patients: follow-up at 3-6 months, then at 18-24 months if no change Note: newly detected indeterminate nodule in persons 35 years of age or older. * low risk patients: minimal or absent history of smoking and/or other known risk factors * high risk patients: history of smoking or of other known risk factors (e.g. first degree relative with lung cancer, or exposure to asbestos, radon, uranium) * if a nodule up to 8 mm is partly solid or is ground glass further follow-up is required after 24 months to exclude possible slow growing adenocarcinoma (NESTOR) SUBSOLID NODULES Solitary pure ground-glass nodule * nodule size <6 mm - no CT follow-up required * nodule size >=6 mm - follow-up CT at 6-12 months, then every 2 years until 5 years Solitary part-solid nodule * nodule size <6 mm - no CT follow-up required * nodule size >=6 mm - follow-up CT at 3-6 months. If unchanged, and solid component remains <6 mm, then annual follow-up for 5 years Multiple subsolid nodules * nodule size <6 mm - follow-up CT at 3-6 months, consider further follow-up at 2 and 4 years if stable * nodule size >=6 mm - follow-up CT at 3-6 months, subsequent management based on the most suspicious nodule(s) Electronically signed by: Guy Meléndez M.D. 06/07/2017 9:44 AM Dictated Date/Time: 06/07/2017 9:34 AM
== END | disposition home or self-care (01) ==
LOC: C.CTS 09:17
PROVIDERS: ATTEND Physician Assistant
DX: R91.8 Other nonspecific abnormal finding of lung field (principal)

== ENCOUNTER 2017-08-05 14:20 | Emergency (ER) | payer BC ==
[~2017-08-05] VITALS: Ht 157.5 cm; Wt 69.5 kg
[~2017-08-05 14:20] MED LIST changes: -CHOL20009 PO; -ESCI10TA17 PO; -FRN PO; -LVS125 SL; -POTA99TA PO; -SUMA0.05 IM; -TOLT2TAB9 PO
[2017-08-05] MEDS ORDERED: POTA99TA PO (14:27)
[2017-08-05 14:31] VITALS: TEMP 36.7; Ht 157.5 cm; Wt 69.5 kg
[2017-08-05] MEDS ORDERED: SUMA0.05 IM (14:56)
[2017-08-05] MEDS ORDERED: CHOL20009 PO (14:56)
[2017-08-05] MEDS ORDERED: ESCI10TA17 PO (14:56)
[2017-08-05] MEDS ORDERED: FRN PO (14:56)
[2017-08-05] MEDS ORDERED: TOLT2TAB9 PO (15:46)
[2017-08-05] MEDS ORDERED: LVS125 SL (15:46)
[2017-08-05] MEDS ORDERED: MoRPHine SULFATE 10 MG/ML CARP/VIAL IV STA (16:55)
[2017-08-05] MEDS ORDERED: ONDANSETRON INJ 2 MG/ML 2 ML VIAL IV STA (16:55)
--- NOTE | 2017-08-05 17:32 | DIAGNOSTIC IMAGING REPORT ---
PA CHEST WITH ABDOMINAL SERIES CLINICAL HISTORY: Acute on chronic generalized abdominal pain. FINDINGS: A PA chest radiograph is compared to study dated 02/06/2017 and correlated with chest CT dated 06/07/2017. The cardiomediastinal silhouette is unremarkable. The lungs and pleural spaces are clear. No pneumothorax is seen. The bony thorax is grossly intact. Supine and erect abdominal radiographs are compared to study dated 02/06/2017 and correlated with abdominal CT dated 12/11/2016. Cholecystectomy clips are noted. There is a nonobstructed abdominal bowel gas pattern. Mild fecal retention is noted throughout the colon. No evidence of intraperitoneal free air is seen. There are no abnormal abdominal calcifications. The lumbosacral spine and bony pelvis appear intact. IMPRESSION: 1. No active disease in the chest. 2. Nonobstructed abdominal bowel gas pattern. Electronically signed by: Guy Meléndez M.D. 08/05/2017 5:30 PM Dictated Date/Time: 08/05/2017 5:29 PM
[2017-08-05 17:37] LABS: ALBUMIN 3.9 gm/dl (3.4-5.0); ALT/SGPT 22 U/L (12-78); AST/SGOT 13 U/L (15-37); BLOOD UREA NITROGEN 9 mg/dl (7-18); CALCIUM 8.6 mg/dl (8.5-10.1); CARBON DIOXIDE 25 mmol/L (21-32); CREATININE 0.93 mg/dl (0.60-1.20); GLUCOSE 85 mg/dl (70-99); LIPASE 92 U/L (73-393); POTASSIUM 3.2 mmol/L (3.5-5.1); SODIUM 137 mmol/L (136-145)
[2017-08-05 17:39] LABS: ALKALINE PHOSPHATASE 77 U/L (45-117); TOTAL PROTEIN 7.8 gm/dl (6.4-8.2)
[2017-08-05] MEDS ORDERED: POTASSIUM CHLORIDE 10 MEQ TABCR PO STA (18:07)
[2017-08-05] MEDS ORDERED: HYOSCYAMINE SULFATE 0.125 MG SL TAB SL STA (18:30)
[2017-08-05 18:35] LABS: BASO % 0.5 %; BASO ABS # 0.04 K/uL (0-0.2); EOS % 1.7 %; EOS ABS # 0.13 K/uL (0-0.5); HEMATOCRIT 39.1 % (37-47); HEMOGLOBIN 13.9 g/dL (12.0-16.0); IG# 0.02 K/uL (0.00-0.02); LYMPH % 23.7 %; LYMPH ABS # 1.83 K/uL (1.2-3.4); MEAN CELL VOLUME 89.1 fL (80-100); MEAN CORPUSCULAR HEMOGLOBIN 31.7 pg (25-34); MEAN CORPUSCULAR HGB CONC 35.5 g/dl (32-36); MEAN PLATELET VOLUME 9.6 fL (7.4-10.4); MONO % 6.5 %; NEUT % 67.3 %; NEUT ABS # 5.19 K/uL (1.4-6.5); PLATELET COUNT 250 K/uL (130-400); RED CELL DISTRIBUTION WIDTH CV 12.7 % (11.5-14.5); WHITE BLOOD COUNT 7.71 K/uL (4.8-10.8)
[2017-08-05] MEDS ORDERED: CYM60 PO (18:37)
[2017-08-05] MEDS ORDERED: TPM100 PO (18:37)
[2017-08-05] MEDS ORDERED: PANT40TA2 PO (18:37)
[2017-08-05] MEDS ORDERED: TPM/50 PO (18:37)
--- NOTE | 2017-08-05 18:51 | EMERGENCY ROOM VISIT NOTE ---
History First contact with patient: 16:44 Chief Complaint: GI ASSESSMENT Stated Complaint: SEVERE INTESTINAL PAIN Nursing Triage Summary: pt c/o pain in RLQ, "I always have pain there, but it's more severe today". ongoing since Wednesday, not improving. associated nausea hx of Chronic constipation referred by PCP for bowel obstruction or perforated bowel History of Present Illness The patient is a 47 year old female who presents to the Emergency Room with complaints of acute on chronic abdominal pain. The patient states that she's had increased pain since last but she told the triage nurse it was only since Wednesday. The patient states that she always has chronic abdominal pain but it has been more severe. She states it has moved at different spots on her abdomen. She points to her right upper abdomen, periumbilical, right lower quadrant and left upper quadrant. The patient admits to associated nausea but denies any vomiting. The patient states that she is moving her bowels. She had a small bowel movement this morning. The patient called into her PCP and was instructed to come to the emergency room. The patient has been seen here on multiple occasions for her abdominal pain. She also is followed by Dr. jose. She has been diagnosed with gastroparesis. She states she has an appointment on August 20 with another GI specialist at [facility]. The patient denies any fever or chills. The patient denies any hematochezia or melena. She has been taking her MiraLAX daily as well as her Senokot every third day. She is compliant with all other medications. Review of Systems 10 system review was performed and was negative unless stated otherwise history of present illness. Past Medical/Surgical History Medical Problems: (1) Acid Reflux Disease (2) Anxiety (3) Bronchitis (4) Cholecystectomy (5) Dilation and curettage (6) Functional abdominal pain syndrome (7) Gastroesophageal reflux disease (8) Hysterectomy Family History Cancer Depression Gallbladder disease Social History Smoking Status: Current Every Day Smoker Alcohol Use: occasionally Drug Use: none Marital Status: Housing Status: lives with significant other Occupation Status: employed Current/Historical Medications Scheduled Buspirone Hcl (Buspirone Hcl), 10 MG PO BID Cholecalciferol (Vitamin D), 2,000 UNITS PO QPM Duloxetine HCl (Duloxetine HCl), 60 MG PO DAILY Escitalopram (Lexapro), 10 MG PO QPM Famotidine (Pepcid), 40 MG PO BID Pantoprazole (Pantoprazole Sodium), 40 MG PO BID Polyethylene Glycol 3350 (Miralax), 17 GM PO Q2D Potassium (Potassium), 99 MG PO HS Sennosides-Docusate Sodium (Senna S), 1 TAB PO QAM Tolterodine Tartrate (Tolterodine Tartrate), 2 MG PO BID Topiramate (Topamax), 50 MG PO BID Topiramate (Topiramate), 100 MG PO BID Scheduled PRN Htuvkbgmuk-Njfeejk-Ygjdsqok (Butalbital/Aspirin/Caffei 50-325-40 mg), 1 CAP PO DIRECTED PRN for Migraine Hyoscyamine Sulfate (Hyoscyamine Sulfate), 1 TAB SL QID PRN for PRN Sumatriptan Succinate (Zembrace Symtouch), 1 DOSE IM DIRECTED PRN for Migraine Tramadol (Ultram), 50 MG PO BID PRN for Headache Physical Exam Vital Signs Date Time Temp Pulse Resp B/P (MAP) Pulse Ox O2 Delivery O2 Flow Rate FiO2 08/05/17 17:38 70 18 114/77 100 Room Air 08/05/17 14:31 36.7 80 18 122/68 97 Room Air Physical Exam GENERAL: 47-year-old white female does not appear in severe pain or any distress. MENTAL Status: Alert and oriented 3. MOUTH: Mucosa is moist NECK: Supple, no lymphadenopathy noted. No carotid bruits noted. LUNGS: Clear auscultation without wheezes rales or rhonchi. CARDIAC: Regular rate and rhythm without murmur. Pulses is full and equal throughout. BACK: No CVA tenderness noted. ABDOMEN: Positive bowel sounds all 4 quadrants. Soft, mild generalized tenderness to palpation without organomegaly or masses. EXTREMITIES: No cyanosis or edema noted. Medical Decision & Procedures ER Provider Diagnostic Interpretation: Patient Name: DEVAUGHN MANNING Unit Number: [id number] Dictated: 08/05/171728 Transcribed: 08/05/171728 EV Printed Date/Time: [~ rep prt dt]/[~ rep prt tm] [~ rep ct labl] - [~ rep ct ivnm] [facility] [place] [address] Dictated: 08/05/171728 Transcribed: 08/05/171728 EV Printed Date/Time: [~ rep prt dt]/[~ rep prt tm] [~ rep ct labl] - [~ rep ct ivnm] PA CHEST WITH ABDOMINAL SERIES CLINICAL HISTORY: Acute on chronic generalized abdominal pain. FINDINGS: A PA chest radiograph is compared to study dated 02/06/2017 and correlated with chest CT dated 06/07/2017. The cardiomediastinal silhouette is unremarkable. The lungs and pleural spaces are clear. No pneumothorax is seen. The bony thorax is grossly intact. Supine and erect abdominal radiographs are compared to study dated 02/06/2017 and correlated with abdominal CT dated 12/11/2016. Cholecystectomy clips are noted. There is a nonobstructed abdominal bowel gas pattern. Mild fecal retention is noted throughout the colon. No evidence of intraperitoneal free air is seen. There are no abnormal abdominal calcifications. The lumbosacral spine and bony pelvis appear intact. IMPRESSION: 1. No active disease in the chest. 2. Nonobstructed abdominal bowel gas pattern. Electronically signed by: Guy Meléndez M.D. 08/05/2017 5:30 PM Dictated Date/Time: 08/05/2017 5:29 PM The status of this report is Signed. Draft = Not yet reviewed or approved by Radiologist. Signed = Reviewed and approved by Radiologist. <AttendingPhy></AttendingPhy> <FamilyPhy>Louann Bobby PA-C</FamilyPhy> < PrimaryPhy>Louann Bobby PA-C</PrimaryPhy> <UnitNumber>[id number]</ UnitNumber> <VisitNumber>[id number]</VisitNumber> <PatientName>DEVAUGHN MANNING </PatientName> <DateOfBirth>1970</DateOfBirth> <Location>[facility]</Location> <ServiceDate>08/05/17</ServiceDate> <MNE>ESINDI</MNE> <OrderingPhy>Keerthi Segundo PA-C</OrderingPhy> <OrderingPhyMNE>f rep ord dr somers</OrderingPhyMNE> < DictatingPhyMNE>f rep dict dr somers</DictatingPhyMNE> <CCListMNE>f rep ct mne</ CCListMNE> <AdmittingPhyMNE>f pt admit dr somers</AdmittingPhyMNE> <AttendingPhyMNE >f pt attend dr somers</AttendingPhyMNE> <ConsultingPhyMNE>f pt consult dr somers</ConsultingPhyMNE> <FamilyPhyMNE>f pt fam dr somers</FamilyPhyMNE> <OtherPhyMNE>f pt other dr somers</OtherPhyMNE> < PrimaryPhyMNE>f pt prim care dr somers</PrimaryPhyMNE> <ReferringPhyMNE>f pt referring dr somers</ReferringPhyMNE> Laboratory Results 08/05/17 16:55 Red Blood Count 4.39, Mean Corpuscular Volume 89.1, Mean Corpuscular Hemoglobin 31.7, Mean Corpuscular Hemoglobin Concent 35.5, Mean Platelet Volume 9.6, Neutrophils (%) (Auto) 67.3, Lymphocytes (%) (Auto) 23.7, Monocytes (%) (Auto) 6.5, Eosinophils (%) (Auto) 1.7, Basophils (%) (Auto) 0.5, Neutrophils # (Auto) 5.19, Lymphocytes # (Auto) 1.83, Monocytes # (Auto) 0.50, Eosinophils # (Auto) 0.13, Basophils # (Auto) 0.04 08/05/17 16:55 Test 08/05/17 16:55 White Blood Count 7.71 K/uL (4.8-10.8) Red Blood Count 4.39 M/uL (4.2-5.4) Hemoglobin 13.9 g/dL (12.0-16.0) Hematocrit 39.1 % (37-47) Mean Corpuscular Volume 89.1 fL (80-100) Mean Corpuscular Hemoglobin 31.7 pg (25-34) Mean Corpuscular Hemoglobin Concent 35.5 g/dl (32-36) Platelet Count 250 K/uL (130-400) Mean Platelet Volume 9.6 fL (7.4-10.4) Neutrophils (%) (Auto) 67.3 % Lymphocytes (%) (Auto) 23.7 % Monocytes (%) (Auto) 6.5 % Eosinophils (%) (Auto) 1.7 % Basophils (%) (Auto) 0.5 % Neutrophils # (Auto) 5.19 K/uL (1.4-6.5) Lymphocytes # (Auto) 1.83 K/uL (1.2-3.4) Monocytes # (Auto) 0.50 K/uL (0.11-0.59) Eosinophils # (Auto) 0.13 K/uL (0-0.5) Basophils # (Auto) 0.04 K/uL (0-0.2) RDW Standard Deviation 41.0 fL (36.4-46.3) RDW Coefficient of Variation 12.7 % (11.5-14.5) Immature Granulocyte % (Auto) 0.3 % Immature Granulocyte # (Auto) 0.02 K/uL (0.00-0.02) Anion Gap 7.0 mmol/L (3-11) Est Creatinine Clear Calc Drug Dose 68.3 ml/min Estimated GFR () 84.8 Estimated GFR (Non- 73.2 BUN/Creatinine Ratio 9.9 (10-20) Calcium Level 8.6 mg/dl (8.5-10.1) Total Bilirubin 0.2 mg/dl (0.2-1) Direct Bilirubin < 0.1 mg/dl (0-0.2) Aspartate Amino Transf (AST/SGOT) 13 U/L (15-37) Alanine Aminotransferase (ALT/SGPT) 22 U/L (12-78) Alkaline Phosphatase 77 U/L (45-117) Total Protein 7.8 gm/dl (6.4-8.2) Albumin 3.9 gm/dl (3.4-5.0) Lipase 92 U/L (73-393) Medications Administered Medications (Trade) Dose Ordered Sig/Quang Route Start Time Stop Time Status Last Admin Dose Admin Ondansetron HCl (Zofran Inj) 4 mg NOW STAT IV 08/05/17 16:55 08/05/17 16:57 DC 08/05/17 17:41 4 MG Morphine Sulfate (MoRPHine SULFATE INJ) 6 mg NOW STAT IV 08/05/17 16:55 08/05/17 16:57 DC 08/05/17 17:40 6 MG Potassium Chloride (Klor-Con M10) 20 meq NOW STAT PO 08/05/17 18:07 08/05/17 18:08 DC 08/05/17 18:18 20 MEQ ED Course The patient was evaluated. The patient's EMR medication list were reviewed. The patient has had multiple CTs over the last 6 months which have all been normal. She even had a workup for dissection the last time she was in the emergency room which was also negative. IV access was obtained. CBC differential, renal profile, LFTs and lipase levels were ordered. The patient was given morphine 6 mg IV for pain and Zofran 4 mg IV push for nausea. Abdominal series x-ray was ordered and interpreted by myself and the radiologist as above without any evidence of obstruction or perforation. The patient was informed of the findings she was reevaluated was feeling better. She later was again reevaluated after her labs are reviewed. CBC and differential unremarkable. The patient's potassium was low at 3.2 she was given K-Vashti 20 mEq by mouth. The patient started getting crampy feeling and thought that her hyocyamine would help therefore she was ordered 0.125 mg SL. The patient was discharged home in stable condition. Medical Decision Differential diagnosis include bowel obstruction, perforated bowel, fecal impaction, constipation [facility] Drug Monitoring Program Search Results: patient reviewed within database Medication Reconcilliation Current Medication List: was personally reviewed by me Blood Pressure Screening Patient's blood pressure: Normal blood pressure Impression Primary Impression: Abdominal pain Additional Impression: Hypokalemia Departure Information Dispostion Home / Self-Care Condition GOOD Referrals Louann Bobby PA-C (PCP) Forms HOME CARE DOCUMENTATION FORM, IMPORTANT VISIT INFORMATION Patient Instructions Abdominal Pain - [facility], Hypokalemia [place], My [facility] Additional Instructions Continue all medications as prescribed. Recommend eating a banana daily for potassium. Follow-up with your family doctor on Wednesday for recheck. Keep scheduled appointment with gastroenterology at [place] as previously scheduled. If symptoms worsen in the interim, return to ER. Problem Qualifiers Primary Impression: Abdominal pain Abdominal location: generalized Qualified Codes: R10.84 - Generalized abdominal pain
[2017-08-05 19:17] VITALS: BP 115/86; PULSE 75; O2SAT 98
== END 2017-08-05 19:08 | disposition home or self-care (01) ==
LOC: C.EDB 14:22 → C.EDA 19:08
DX: R10.84 Generalized abdominal pain (principal); E87.6 Hypokalemia; G89.29 Other chronic pain; K21.9 Gastro-esophageal reflux disease without esophagitis; F41.9 Anxiety disorder, unspecified; Z90.710 Acquired absence of both cervix and uterus; Z90.49 Acquired absence of other specified parts of digestive tract; Z80.9 Family history of malignant neoplasm, unspecified; F17.210 Nicotine dependence, cigarettes, uncomplicated; Z79.899 Other long term (current) drug therapy

== ENCOUNTER → 2018-02-11 | Outpatient (CLI) | payer OTHER ==
[~2018-02-11] MED LIST changes: +CHOL20009 PO; +CYM60 PO; -DULO60CA44 PO; +ESCI10TA17 PO; +FRN PO; -LINA1CAP PO; +LVS125 SL; +OPTIRAY 320 IV PRN; -PANT40TA PO; +PANT40TA2 PO; +POTA99TA PO; +SUMA0.05 IM; +TOLT2TAB9 PO; -TOPI100T20 PO; +TPM/50 PO; +TPM100 PO
--- NOTE | 2018-02-11 10:36 | DIAGNOSTIC IMAGING REPORT ---
CHEST CT WITH CONTRAST CT DOSE: 258.06 mGy.cm HISTORY: Follow-up PULMONARY NODULE TECHNIQUE: Multiaxial CT images of the chest were performed following the intravenous administration of contrast. A dose lowering technique was utilized adhering to the principles of ALARA. COMPARISON: Chest CT 06/07/2017. FINDINGS: The central airways are patent. No pleural effusions. No pneumothorax. Stable 9 x 5 mm left lower lobe nodule. Otherwise, the lungs are clear. No new pulmonary nodules identified. No suspicious lytic or blastic osseous lesions. Cholecystectomy. No hepatic or splenic masses. Normal adrenal glands. The mediastinal vascular structures are within normal limits. No mediastinal or hilar lymphadenopathy. IMPRESSION: Stable 9 x 5 mm left lower lobe pulmonary nodule. Continued follow-up recommended. Please refer to below summary of Fleischner criteria recommendations for follow-up of incidental CT nodules (Jenae Godinez, Guidelines for management of small pulmonary nodules detected on CT scans: A statement from the Fleischner Society, Radiology 237: [id number].) SOLID NODULES Solitary nodule size: <6 mm * Low risk patients: no follow-up needed * high risk patients: optional CT at 12 months Solitary nodule size: 6-8 mm * Low risk patients: follow-up at 6-12 months, then consider further follow-up at 18-24 months * high risk patients: initial follow-up CT at 6-12 months and then at 18-24 months if no change Solitary nodule size: >8 mm * either low or high risk patients - consider follow-up CT at 3 months, and/or CT-PET, and/or biopsy Multiple nodules size: <6 mm * Low risk patients: no routine follow-up * high risk patients: optional CT at 12 months Multiple nodules size: 6-8 mm * Low risk patients: follow-up at 3-6 months, then consider further follow-up at 18-24 months * high risk patients: follow-up at 3-6 months, then at 18-24 months if no change Multiple nodules size: >8 mm * Low risk patients: follow-up at 3-6 months, then consider further follow-up at 18-24 months * high risk patients: follow-up at 3-6 months, then at 18-24 months if no change Note: newly detected indeterminate nodule in persons 35 years of age or older. * Low risk patients: minimal or absent history of smoking and/or other known risk factors * high risk patients: history of smoking or of other known risk factors (e.g. first degree relative with lung cancer, or exposure to asbestos, radon, uranium) * if a nodule up to 8 mm is partly solid or is ground glass further follow-up is required after 24 months to exclude possible slow growing adenocarcinoma (NESTOR) SUBSOLID NODULES Solitary pure ground-glass nodule * nodule size <6 mm - no CT follow-up required * nodule size >=6 mm - follow-up CT at 6-12 months, then every 2 years until 5 years Solitary part-solid nodule * nodule size <6 mm - no CT follow-up required * nodule size >=6 mm - follow-up CT at 3-6 months. If unchanged, and solid component remains <6 mm, then annual follow-up for 5 years Multiple subsolid nodules * nodule size <6 mm - follow-up CT at 3-6 months, consider further follow-up at 2 and 4 years if stable * nodule size >=6 mm - follow-up CT at 3-6 months, subsequent management based on the most suspicious nodule(s) Electronically signed by: Edgar Chaves M.D. 02/11/2018 10:35 AM Dictated Date/Time: 02/11/2018 10:15 AM
== END | disposition home or self-care (01) ==
LOC: C.CTS 09:28
PROVIDERS: ATTEND Physician Assistant
DX: R91.1 Solitary pulmonary nodule (principal)